=== PATIENT | male | born 1945 | race Caucasian/White ===

== ENCOUNTER 2019-01-26 18:26 | Emergency (ER) | payer MEDICARE ==
--- OUTSIDE RECORDS SUMMARY | 2019-01-26 18:33 | XMS REPORT | Continuity of Care Document ---
:1945 External Reference #:[id number] Author Name Evie Watts M.D., R.D. Address [address] [place] [id number] Care Team Providers Name Role Phone Evie Watts M.D., RTorsten Care Team Information Lan/Wan Engineer Unavailable Payers Date Identification Numbers Payment Provider Subscriber Effective: 2012 Policy Number: [id number] Medicare - Bswflo Armstrong Sammy Member Expires: 2016 PayID: [id number] [address] [place] [address] Effective: 2013 Policy Number: [id number] [employer](Open Choice) Denise Member Expires: 2014 PayID: [id number] [address] [place] [address] Effective: 2010 Policy Number: [id number] [facility] Denise Member Expires: 2011 Group Name: [facility] [address] [address] PayID: [id number] SHARON Chacko [id number] Effective: 2013 Policy Number: [id number] [facility] Denise Member Expires: 2013 Group Number: [id number] [address] [address] Group Name: BC/BS SHARON Lozano [address] PayID: [id number] Effective: 2014 Policy Number: [id number] [employer](Open Choice) Denise Member Expires: 2016 PayID: [id number] [address] [place] [address] Expires: 2017 Policy Number: [id number] [facility] Medicare Solutions Sammy Member Group Number: [id number] [address] [address] PayID: [id number] [place] [address] Effective: 2017 Policy Number: [employer] Bernard Member [id number] Rhonda PayID: [id number] 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., RTorsten Active crisis Onset: 06/15/2013 Benign essential hypertension Evie Watts M.D., RTorsten Active Onset: 06/15/2013 Mixed hyperlipidemia Evie Watts M.D., Michelle Active Onset: 06/15/2013 Depressive disorder Evie Watts M.D., RTorsten Active Onset: 06/15/2013 Generalized anxiety disorder Evie Watts M.D., RTorsten Active Onset: 06/15/2013 Impaired fasting glycaemia Evie Watts M.D., RTorsten Active Onset: 06/15/2013 Benign localized hyperplasia of Evie Watts M.D., RTorsten Active prostate Onset: 09/26/2015 Essential hypertension Evie Watts M.D., R.DJaren Active Family History Date Family Member(s) Observation Comments General No polyps or colon cancer fam hx General Anxiety General Hypertension General Depression Social History Type Date Description Comments Sex Unknown Education Highest level MD. He is a completed, Doctorate Psychiatrist in private practice. Marital Status Diet Healthy, Well Balanced Eats many [employer] prepared foods. Tries to avoid fast foods. Tobacco Use Start: Unknown Current Cigarette Has tried to quit. Smoker 1 Pack Daily ETOH Use Denies alcohol use Tobacco Use Start: Unknown Patient is a current As of 2012, down to 2 smoker, smokes every cigarettes a day. day 08/2014, still smokes only 2 cigarettes daily. Not interested in quitting completely. As of 11/2017, smoking a couple of cigarettes daily. Would like to quit but feeling his life is too stressful now to be able to stop now. Smoking Status Reviewed: 12/10/18 Patient is a current As of 2012, down to 2 smoker, smokes every cigarettes a day. day 08/2014, still smokes only 2 cigarettes daily. Not interested in quitting completely. As of 11/2017, smoking a couple of cigarettes daily. Would like to quit but feeling his life is too stressful now to be able to stop now. Exercise Exercises sporadically Used to run, do Type/Frequency Ju-Jitsu until hurt knee last yr. Now less exercise. As of 2011 he cannot do exercise due to back issues. Not exercising as of 08/2014. Not able to exercise due to pain in his back. 11/2018 also has VANEGAS which limits his exercise capacity. Allergies, Adverse Reactions, Alerts Description No Known Drug Allergies Medications Medication Date Status Form Strength Qnty SIG Indications Ordering Provider Ciprodex 01/13 Active Suspension 0.3-0.1% QS 2 drops in each eye qid Mac for 5 days M.D., R.D. Dulera 07/30 Active Aerosol 200-5mcg/ 13uni inhale 1 J44.9 Act ts puff by Mac, mouth two M.D., times a day R.D. Atenolol 10/01 Active Tablets 100mg 90tab 1 by mouth I10 Evie s every day Rodney Watts, R.D. Levothyroxine 11/28 Active Tablets 75mcg 90tab Take 1 Evie Sodium s Tablet By Mac, Mouth Every M.D., Day R.D. Lumigan 11/21 Active Solution 0.01% per Dr. Case /2016 El Watts M.D., R.D. Trazodone HCL 09/03 Active Tablets 100mg 90tab 1 tablet by Evie s mouth before Mac, bed as M.D., needed for R.D. sleep. Amlodipine 09/06 Active Tablets 5mg 90tab Take 1 I10 Evie Besylate s Tablet By Mac, Mouth Every M.D., Day R.D. Atorvastatin 05/08 Active Tablets 20mg 90tab Take 1 Evie Calcium s Tablet By Mac, Mouth AT M.D., Bedtime R.D. Meloxicam 01/05 Active Tablets 7.5mg 180ta 1 by mouth Evie bs every day to Mac, twice a day M.D., as needed R.D. Tamsulosin HCL 12/11 Active Capsules 0.4mg 90cap Take 1 s Capsule By Mac, Mouth Every M.D., Day R.D. Finasteride 12/11 Active Tablets 5mg 90tab Take 1 s Tablet By Mac, Mouth Every M.D., Day R.D. Cymbalta Active Caps DR 60mg 90cap 1 by mouth Isha Part s every day as P. directed Rodney Ackerman Ativan Active Tablets 1mg 1 by mouth Unknown four times a day Ritalin Active Tablets 20mg 1 by mouth Unknown three times a day Spiriva 07/30 Hx Aerosol 2.5mcg/Ac 4gm 1 inhalation J44.9 Respimat t once daily Ti Watts M.D., 01/12 R.D. /2018 Abilify 04/16 Hx Tablets 2mg 90tab 1 po qd s Ti Watts M.D., 07/30 R.D. Advair HFA 04/02 Hx Aerosol 115-21mcg 12uni inhale 2 /Act ts puffs by Ti Watts mouth twice M.D., 01/12 a day then R.D. /2018 rinse your mouth Bactrim DS 04/02 Hx Tablets 800-160mg 14tab 1 by mouth L02.212 s twice a day Ti Watts M.D., 07/29 R.D. Vitamin D-3 12/04 Hx Capsules 2000Unit 1 by mouth every day Ti Watts M.D., 07/30 R.D. Atenolol 10/01 Hx Tablets 100mg 90tab 1 by mouth I10 s every day Ti Watts M.D., 10/01 R.D. Ventolin HFA 09/04 Hx Aerosol 108(90Bas 1unit inhale two e) s puffs by Ti Watts mcg/Act mouth every M.D., 01/12 4 hours as R.D. needed Cephalexin 08/28 Hx Capsules 500mg 21cap 1 by mouth L03.039 s three times Mac - a day M.D., 12/04 R.D. /2017 Cialis 07/01 Hx Tablets 20mg 5tabs take 1 pill qd prn Ti Watts M.D., 07/30 R.D. Atenolol 06/29 Hx Tablets 50mg 2 by mouth I10 every day Ti Watts M.D., 10/01 R.D. Ritalin 12/24 Hx Tablets 20mg 30tab 1 by mouth s every day Ti Watts M.D., 01/23 R.D. Accu-Chek 11/24 Hx Kit 1unit Use as Evie Compact s directed Manuel Watts - M.DJaren, 07/30 R.D. Accu-Chek 11/24 Hx Strips 102un or Evie Compact its appropriate Ti Watts strips for M.D., 07/30 this R.D. /2017 patient's accu-check glucometer Lancets Thin 11/24 Hx Misc 100un use as its directed to Ti Watts check bgs M.DJaren, 07/30 R.D. Ativan 09/26 Hx Tablets 1mg 90tab 1 by mouth s three times Mac - a day M.D., 01/12 R.D. Ritalin 08/27 Hx Tablets 20mg 120ta 1 by mouth 4 bs times a day Mac, - - more only M.D., 01/12 R.D. Abilify 03/27 Hx Tablets 5mg 90tab 1 by mouth s every day Ti Watts M.D., 04/16 R.D. Cialis 02/17 Hx Tablets 10mg 10tab 1 by mouth s every [address] M.Nelly, 07/01 disregard rx R.D. /2016 just sent with qty of 6 and fill with qty of 10 Ativan 01/09 Hx Tablets 1mg 270ta 1 po tid bs code Ti Fernández M.D., 01/09 R.D. Vitamin D3 09/30 Hx Capsules [id number] 8caps 1 by mouth every week Ti Watts M.D., 12/04 R.D. /2017 Lansoprost Eye 09/26 Hx Evie Drops Ti Watts M.D., 11/21 R.D. Klonopin 09/26 Hx Tablets 1mg 270ta 1 by mouth bs three times Mac, - a day as Rodney, 09/26 needed code: R.D. a Acetaminophen-C 09/26 Hx Tablets 300-30mg 90tab 1 by mouth M54.5 Evie odeine #3 s every day as Mac - needed h/a Rodney, 04/02 R.D. /2017 Clobetasol 07/26 Hx Cream 0.05% 60gm Apply to Evie affected Ti Watts area on leg M.D., 07/30 bid R.D. /2017 Valtrex 07/12 Hx Tablets 1gm 21tab 1 by mouth Shawnti s three times Tiffany May, - a day for 7 SMALL ENGINE MECHANIC-C Viibryd 06/28 Hx Tablets 40mg 90tab take one tab s by mouth Mac - daily M.DJaren, 12/04 R.D. /2017 Concerta 03/28 Hx Tablets ER 36mg 180ta 2 by mouth bs every day Ti Watts b Rodney, 08/27 R.D. Levothyroxine 09/08 Hx Tablets 88mcg 90tab take 1 Ji Sodium s tablet daily Summer Luke MD 11/28 Amlodipine 09/06 Hx Tablets 5mg 30tab 1 by mouth 401.1 Evie Besylate s every day Ti Watts M.D., 09/08 R.D. Levothyroxine 09/12 Hx Tablets 75mcg 90tab 1 po qd Ti Addison M.D., 09/08 R.D. Viibryd 07/06 Hx Tablets 90tab 40 mg 1 by s mouth every Mac, - day M.Nelly, 06/28 R.D. /2014 Ativan 07/06 Hx Tablets 270ta 1 mg three bs times a day Mac, - code a Rodney, 07/14 R.D. /2015 Levothroid 05/11 Hx Tablets 50mcg 30tab 1 po qd marvin Delvalle, - SMALL ENGINE MECHANIC-C 09/06 Levothyroxine 05/11 Hx Tablets 50mcg 90tab 1 po qod marvin Watts, - with 75 haim MTorsten, 11/14 qod R.D. /2012 Trazadone 03/30 Hx 100mg 30uni 1 by mouth ts at at [place], - bedtime SMALL ENGINE MECHANIC-C 09/03 Levothyroxine 02/19 Hx Tablets 75mcg 90tab 1 po qd Ti Addison M.D., 05/11 R.D. /2012 Pristiq 01/09 Hx Tablets ER 100mg 1 po qd 24HR Ti Watts M.D., 03/30 R.D. Amlodipine 05/08 Hx Tablets 5mg 90tab 1 po qd Ti Addison M.D., 07/06 R.D. /2012 Abilify 12/28 Hx Tablets 5mg 1 po qd Ti Watts M.D., 09/26 R.D. /2014 Caduet 09/28 Hx Tablets 5-20mg 14tab 1 po qd Ti Addison M.D., 05/08 R.D. /2009 Levoxyl 12/14 Hx Tablets 88mcg 90tab 1 po qd as Ti Rudolph M.D., 02/19 R.D. /2011 Norvasc 12/11 Hx Tablets 5mg 90tab 1 po qd 401.1 s Ti Watts M.D., 09/28 R.D. /2008 Effexor XR 12/11 Hx Caps ER 300mg 150 mg 2 po 24HR qd Ti Watts M.D., 01/09 R.D. /2010 Concerta 12/11 Hx Tablets ER 180ta 72 mg every F32.9 bs in the Mac, - morning (2 M.D., 09/26 36 mg pills) R.D. /2014 code b Klonopin 12/11 Hx Tablets 0.5mg 1 po tid prn Ti Watts M.D., 07/06 R.D. /2012 Lipitor 12/11 Hx Tablets 90tab 20 mg 1 po s qhs Ti Watts M.D., 05/08 R.D. /2009 Atenolol 12/11 Hx Tablets 100mg 90tab Take 1 I10 s Tablet By Mac - Mouth Every M.D., 06/29 Day R.D. /2016 Medications Administered in Office Medication Date Status Form Strength Qnty SIG Indications Ordering Provider TB,Intradermal Administered Injection Lab and (PPD, Mantoux) 010 Office Services Immunizations CPT Code Status Date Vaccine Lot # [id number] Given 07/30/2018 Influenza Vaccine High Dose PF [id number] 48783 Given 08/28/2017 Influenza Vaccine High Dose PF [id number] 20013 Given 11/21/2016 Influenza Vaccine High Dose PF [id number] 44036 Given 09/26/2015 Zoster Vaccine [id number] 44901 Given 09/26/2015 Influenza Vaccine High Dose PF [id number] 94579 Given 12/01/2014 Prevnar-13 Pneumococcal Conjugate Vaccine [id number] 09652 Given 09/06/2014 Influenza Virus Vaccine, Quadrivalent, 3 Yr > [id number] Quad, Preserv Free 48687 Given 03/30/2013 Pneumovax 23 (PPSV23) 65+ years or high risk 2 to [id number] 66 year old 12491 Given 06/28/2009 Tdap (Adacel) [id number] Vital Signs Date Vital Result Comment 01/12/2019 3:05pm Weight 161.00 lb Weight 73.030 kg BP Systolic 132 mmHg BP Diastolic 82 mmHg Heart Rate 78 /min Body Temperature 97.0 F Respiratory Rate 18 /min O2 % BldC Oximetry 97 % 12/10/2018 2:03pm Weight 162.00 lb Weight 73.483 kg BP Systolic 140 mmHg BP Diastolic 90 mmHg Heart Rate 76 /min Body Temperature 97.9 F Height 65 inches 5'5" BMI (Body Mass Index) 27.0 kg/m2 O2 % BldC Oximetry 97 % 07/30/2018 10:45am Weight 162.00 lb Weight 73.483 kg BP Systolic 138 mmHg BP Diastolic 82 mmHg Heart Rate 72 /min Body Temperature 98.7 F Respiratory Rate 12 /min 04/02/2018 1:13pm Weight 165.00 lb Weight 74.844 kg BP Systolic 124 mmHg BP Diastolic 83 mmHg Heart Rate 80 /min Body Temperature 99.3 F O2 % BldC Oximetry 97 % 12/04/2017 12:12pm Weight 170.00 lb Weight 77.112 kg BP Systolic 110 mmHg BP Diastolic 62 mmHg Heart Rate 72 /min Body Temperature 97.1 F Respiratory Rate 16 /min O2 % BldC Oximetry 97 % 08/28/2017 11:23am Weight 170.00 lb Weight 77.112 kg BP Systolic 110 mmHg BP Diastolic 60 mmHg Heart Rate 72 /min Body Temperature 96.8 F 05/22/2017 11:14am Weight 166.00 lb Weight 75.298 kg BP Systolic 112 mmHg BP Diastolic 72 mmHg Heart Rate 76 /min Body Temperature 97.9 F Respiratory Rate 16 /min O2 % BldC Oximetry 98 % 11/21/2016 9:36am Weight 163.00 lb Weight 73.937 kg BP Systolic 139 mmHg BP Diastolic 85 mmHg Heart Rate 72 /min Height 66 inches 5'6" BMI (Body Mass Index) 26.3 kg/m2 09/26/2015 9:27am Weight 157.00 lb Weight 71.215 kg BP Systolic 120 mmHg BP Diastolic 80 mmHg Heart Rate 62 /min Height 65.5 inches 5'5.50" BMI (Body Mass Index) 25.7 kg/m2 05/21/2015 3:27pm Weight 164.00 lb Weight 74.390 kg BP Systolic 120 mmHg BP Diastolic 70 mmHg Heart Rate 62 /min 09/22/2014 1:04pm BP Systolic 110 mmHg BP Diastolic 72 mmHg 09/06/2014 2:20pm Weight 167.00 lb Weight 75.751 kg BP Systolic 150 mmHg BP Diastolic 100 mmHg Heart Rate 62 /min Height 65.5 inches 5'5.50" BMI (Body Mass Index) 27.4 kg/m2 02/03/2014 12:00pm BP Systolic 122 mmHg BP Diastolic 80 mmHg 11/11/2013 2:55pm Weight 153.00 lb Weight 69.401 kg BP Systolic 124 mmHg BP Diastolic 80 mmHg 09/09/2013 3:07pm Weight 153.00 lb Weight 69.401 kg BP Systolic 128 mmHg BP Diastolic 82 mmHg Heart Rate 68 /min 07/06/2013 10:44am Weight 147.00 lb Weight 66.679 kg BP Systolic 132 mmHg BP Diastolic 84 mmHg Heart Rate 96 /min 04/29/2013 11:30am BP Systolic 110 mmHg BP Diastolic 74 mmHg 03/30/2013 11:02am Weight 159.00 lb Weight 72.122 kg BP Systolic 96 mmHg BP Diastolic 64 mmHg Heart Rate 100 /min Height 65.5 inches 5'5.50" BMI (Body Mass Index) 26.1 kg/m2 05/20/2012 2:49pm BP Systolic 110 mmHg BP Diastolic 74 mmHg 04/27/2012 11:57am BP Systolic 142 mmHg BP Diastolic 92 mmHg 03/26/2012 11:50am BP Systolic 120 mmHg BP Diastolic 82 mmHg 02/18/2012 10:42am Weight 155.00 lb Weight 70.308 kg BP Systolic 120 mmHg BP Diastolic 70 mmHg Heart Rate 108 /min Height 65.75 inches 5'5.75" BMI (Body Mass Index) 25.2 kg/m2 01/09/2011 1:34pm Weight 160.00 lb Weight 72.576 kg BP Systolic 140 mmHg BP Diastolic 80 mmHg Heart Rate 92 /min Height 65.75 inches 5'5.75" BMI (Body Mass Index) 26.0 kg/m2 12/28/2009 12:20pm Weight 163.00 lb Weight 73.937 kg BP Systolic 115 mmHg BP Diastolic 83 mmHg Heart Rate 92 /min Body Temperature 97.7 F 08/17/2009 11:32am Weight 155.00 lb Weight 70.308 kg BP Systolic 120 mmHg BP Diastolic 70 mmHg Heart Rate 72 /min 07/20/2009 3:09pm Weight 155.00 lb Weight 70.308 kg BP Systolic 120 mmHg BP Diastolic 72 mmHg Heart Rate 64 /min 01/05/2009 1:01pm Weight 152.00 lb Weight 68.947 kg BP Systolic 110 mmHg BP Diastolic 60 mmHg Heart Rate 64 /min Height 65.5 inches 5'5.50" BMI (Body Mass Index) 24.9 kg/m2 12/11/2008 4:07pm Weight 153.00 lb Weight 69.401 kg BP Systolic 110 mmHg BP Diastolic 78 mmHg Heart Rate 66 /min Height 65.5 inches 5'5.50" BMI (Body Mass Index) 25.1 kg/m2 O2 % BldC Oximetry 97 % Results Test Date Facility Test Result H/L Range Note Laboratory test 01/12/2019 In House Lab Strep PCR NEG finding (997)- - Eye Culture/Sensi 01/12/2019 [facility] Eye Culture SEE RESULT 5 [phone] Gram Stain BELOW Comp Metabolic 12/10/2018 [facility] Sodium 138 mmol/ L N 135-145 Panel [phone] Potassium 4.2 mmol/L N 3.5-5.0 Chloride 103 mmol/L N 101-111 Co2 Carbon Dioxide 29 mmol/L N 22-32 Anion Gap 6 mmol/L N 2-11 Glucose 105 mg/dL High 70-100 Blood Urea Nitrogen 24 mg/dL N 6-24 Creatinine 0.90 mg/dL N 0.67-1.17 BUN/Creatinine Ratio 26.7 High 8-20 Calcium 9.8 mg/dL N 8.6-10.3 Total Protein 7.5 g/dL N 6.4-8.9 Albumin 4.2 g/dL N 3.2-5.2 Globulin 3.3 g/dL N 2-4 Albumin/Globulin Ratio 1.3 N 1-3 Total Bilirubin 0.40 mg/dL N 0.2-1.0 Alkaline Phosphatase 67 U/L N 34-104 Alt 19 U/L N 7-52 Ast 16 U/L N 13-39 Egfr Non- 83.4 >60 Egfr 100.9 >60 2 Laboratory test 12/10/2018 [facility] Hemoglobin A1c 5.9 % High 4.0-5.6 3 finding [phone] (Glyco HGB) Lipid Profile 12/10/2018 [facility] Triglycerides 67 4 (Trig/Chol/HDL) [phone] mg/dL Cholesterol 159 mg/dL 5 HDL Cholesterol 47.2 mg/dL 6 LDL Cholesterol 98 mg/dL 7 Laboratory test 12/10/2018 [facility] TSH (Thyroid 2.01 mcIU/mL N 0.34-5.60 8 finding [phone] Stim Horm) PSA Screening 2.104 ng/mL N 0-4.000 9 Laboratory test 05/21/2018 [facility] Surgical SEE RESULT 10 finding [phone] Interface Order BELOW Comp Metabolic 04/06/2018 [facility] Sodium 136 mmol/ L Low 139-1 Panel [phone] Potassium 4.2 mmol/L N 3.5-5.0 Chloride 102 mmol/L N 101-111 Co2 Carbon Dioxide 26 mmol/L N 22-32 Anion Gap 8 mmol/L N 2-11 Glucose 99 mg/dL N 70-100 Blood Urea Nitrogen 20 mg/dL N 6-24 Creatinine 1.08 mg/dL N 0.67-1.17 BUN/Creatinine Ratio 18.5 N 8-20 Calcium 9.6 mg/dL N 8.6-10.3 Total Protein 7.6 g/dL N 6.4-8.9 Albumin 4.5 g/dL N 3.2-5.2 Globulin 3.1 g/dL N 2-4 Albumin/Globulin Ratio 1.5 N 1-3 Total Bilirubin 0.50 mg/dL N 0.2-1.0 Alkaline Phosphatase 58 U/L N 34-104 Alt 17 U/L N 7-52 Ast 18 U/L N 13-39 Egfr Non- 67.6 >60 Egfr 86.9 >60 11 Laboratory test 04/06/2018 [facility] Hemoglobin A1c 5.5 % N 4.0-5.6 12 finding [phone] Wound 04/02/2018 [facility] Wound/Misc SEE RESULT 13 Culture/Sensi [phone] Culture-Gram BELOW Stain Lipid Profile 12/04/2017 [facility] Triglycerides 114 mg/dL 14 (Trig/Chol/HDL) [phone] Cholesterol 161 mg/dL 15 HDL Cholesterol 42.6 mg/dL 16 LDL Cholesterol 96 mg/dL 17 Laboratory test 12/04/2017 [facility] TSH (Thyroid 1.17 mcIU/mL N 0.34-5.60 18 finding [phone] Stim Horm) T3 Total 1.10 ng/mL N 0.87-1.78 19 Free T4 (Free Thyroxine) 1.02 ng/dL N 0.61-1.12 20 PSA Screening 0.625 ng/mL N 0-4.000 21 Comp Metabolic Panel 12/04/2017 [facility] Sodium 136 mmol/L N 133-145 [phone] Potassium 4.1 mmol/L N 3.5-5.0 Chloride 103 mmol/L N 101-111 Co2 Carbon Dioxide 29 mmol/L N 22-32 Anion Gap 4 mmol/L N 2-11 Glucose 108 mg/dL High 70-100 Blood Urea Nitrogen 22 mg/dL N 6-24 Creatinine 0.87 mg/dL N 0.67-1.17 BUN/Creatinine Ratio 25.3 High 8-20 Calcium 9.9 mg/dL N 8.6-10.3 Total Protein 7.5 g/dL N 6.4-8.9 Albumin 4.3 g/dL N 3.2-5.2 Globulin 3.2 g/dL N 2-4 Albumin/Globulin Ratio 1.3 N 1-3 Total Bilirubin 0.60 mg/dL N 0.2-1.0 Alkaline Phosphatase 56 U/L N 34-104 Alt 14 U/L N 7-52 Ast 14 U/L N 13-39 Egfr Non- 87.0 >60 Egfr 111.9 >60 22 Laboratory test 12/04/2017 [facility] Vitamin B12 209 pg/mL N 180-914 23 finding [phone] CBC Auto Diff 12/04/2017 [facility] White Blood 6.8 10^3/uL N 3.5-10.8 [phone] Count Red Blood Count 4.71 10^6/uL N 4.0-5.4 Hemoglobin 14.3 g/dL N 14.0-18.0 Hematocrit 42 % N 42-52 Mean Corpuscular Volume 89 fL N 80-94 Mean Corpuscular Hemoglobin 30 pg N 27-31 Mean Corpuscular HGB Conc 34 g/dL N 31-36 Red Cell Distribution Width 13 % N 10.5-15 Platelet Count 237 10^3/uL N 150-450 Mean Platelet Volume 8 um3 N 7.4-10.4 Abs Neutrophils 4.4 10^3/uL N 1.5-7.7 Abs Lymphocytes 1.9 10^3/uL N 1.0-4.8 Abs Monocytes 0.4 10^3/uL N 0-0.8 Abs Eosinophils 0.1 10^3/uL N 0-0.6 Abs Basophils 0 10^3/uL N 0-0.2 Abs Nucleated RBC 0 10^3/uL Granulocyte % 64.4 % N 38-83 Lymphocyte % 27.3 % N 25-47 Monocyte % 6.1 % N 1-9 Eosinophil % 1.6 % N 0-6 Basophil % 0.6 % N 0-2 Nucleated Red Blood Cells % 0 Laboratory test 05/22/2017 [facility] TSH (Thyroid 3.72 mcIU/mL N 0.34-5.60 24 finding [phone] Stim Horm) T3 Total 0.89 ng/mL N 0.87-1.78 25 Free T4 (Free Thyroxine) 0.76 ng/dL N 0.61-1.12 26 Vitamin D Total 25(Oh) 29.0 ng/mL Low 30-50 27 CBC Auto Diff 05/22/2017 [facility] White Blood 8.8 10^3/uL N 3.5-10.8 [phone] Count Red Blood Count 4.85 10^6/uL N 4.0-5.4 Hemoglobin 14.5 g/dL N 14.0-18.0 Hematocrit 44 % N 42-52 Mean Corpuscular Volume 91 fL N 80-94 Mean Corpuscular Hemoglobin 30 pg N 27-31 Mean Corpuscular HGB Conc 33 g/dL N 31-36 Red Cell Distribution Width 14 % N 10.5-15 Platelet Count 231 10^3/uL N 150-450 Mean Platelet Volume 8 um3 N 7.4-10.4 Abs Neutrophils 6.1 10^3/uL N 1.5-7.7 Abs Lymphocytes 2.0 10^3/uL N 1.0-4.8 Abs Monocytes 0.5 10^3/uL N 0-0.8 Abs Eosinophils 0.1 10^3/uL N 0-0.6 Abs Basophils 0 10^3/uL N 0-0.2 Abs Nucleated RBC 0.01 10^3/uL N Granulocyte % 69.8 % N 38-83 Lymphocyte % 22.8 % Low 25-47 Monocyte % 5.6 % N 1-9 Eosinophil % 1.4 % N 0-6 Basophil % 0.4 % N 0-2 Nucleated Red Blood Cells % 0.1 N Laboratory test 05/22/2017 [facility] Ferritin 89.5 ng/mL N 24-336 28 finding [phone] Vitamin B12 304 pg/mL N 180-914 29 Comp Metabolic Panel 11/21/2016 [facility] Sodium 135 mmol/L N 133-145 [phone] Potassium 4.3 mmol/L N 3.5-5.0 Chloride 105 mmol/L N 101-111 Co2 Carbon Dioxide 28 mmol/L N 22-32 Anion Gap 2 mmol/L N 2-11 Glucose 109 mg/dL High 70-100 Blood Urea Nitrogen 24 mg/dL N 6-24 Creatinine 1.05 mg/dL N 0.67-1.17 BUN/Creatinine Ratio 22.9 High 8-20 Calcium 9.7 mg/dL N 8.6-10.3 Total Protein 7.5 g/dL N 6.4-8.9 Albumin 4.3 g/dL N 3.2-5.2 Globulin 3.2 g/dL N 2-4 Albumin/Globulin Ratio 1.3 N 1-3 Total Bilirubin 0.40 mg/dL N 0.2-1.0 Alkaline Phosphatase 76 U/L N 34-104 Alt 17 U/L N 7-52 Ast 18 U/L N 13-39 Egfr Non- 70.2 N >60 Egfr 90.3 N >60 30 Laboratory test 11/21/2016 [facility] Hemoglobin A1c 5.7 % N Less than 31 finding [phone] (Glyco HGB) 6.0 TSH (Thyroid Stim Horm) 0.23 mcIU/mL Low 0.34-5.60 32 Vitamin D Total 25(Oh) 14.9 ng/mL Low 30-50 33 Vitamin B12 158 pg/mL Low 180-914 34 Hepatitis C Antibody Nonreactive N Nonreactive 35 PSA Screening 0.531 ng/mL N 0-4.000 36 Laboratory test 09/26/2015 [facility] PSA Screening 0.597 ng/mL N 0-4.000 37 finding [phone] TSH (Thyroid Stim Horm) 0.79 ?IU/mL N 0.34-5.60 Hemoglobin A1c (Glyco HGB) 5.9 % N Less than 6.0 38 Comp Metabolic Panel 09/26/2015 [facility] Sodium 138 mmol/L N 133-145 [phone] Potassium 4.2 mmol/L N 3.5-5.0 Chloride 104 mmol/L N 101-111 Co2 Carbon Dioxide 28 mmol/L N 22-32 Anion Gap 6 mmol/L N 2-11 Glucose 106 mg/dL High 70-100 Blood Urea Nitrogen 17 mg/dL N 6-24 Creatinine 0.96 mg/dL N 0.67-1.17 BUN/Creatinine Ratio 17.7 N 8-20 Calcium 9.6 mg/dL N 8.6-10.3 Total Protein 7.1 g/dL N 6.4-8.9 Albumin 4.3 g/dL N 3.2-5.2 Globulin 2.8 g/dL N 2-4 Albumin/Globulin Ratio 1.5 N 1-3 Total Bilirubin 0.50 mg/dL N 0.2-1.0 Alkaline Phosphatase 66 U/L N 34-104 Alt 16 U/L N 7-52 Ast 18 U/L N 13-39 Egfr Non- 78.1 N >60 Egfr 100.5 N >60 39 CBC Auto Diff 09/26/2015 [facility] White Blood 7.2 10^3/uL N 4.8-10.8 [phone] Count Red Blood Count 4.59 10^6/uL N 4.0-5.4 Hemoglobin 13.5 g/dL Low 14.0-18.0 Hematocrit 42 % N 42-52 Mean Corpuscular Volume 91 fL N 80-94 Mean Corpuscular Hemoglobin 29 pg N 27-31 Mean Corpuscular HGB Conc 32 g/dL N 31-36 Red Cell Distribution Width 14 % N 10.5-15 Platelet Count 259 10^3/uL N 150-450 Mean Platelet Volume 8 um3 N 7.4-10.4 Abs Neutrophils 4.7 10^3/uL N 1.5-7.7 Abs Lymphocytes 1.8 10^3/uL N 1.0-4.8 Abs Monocytes 0.5 10^3/uL N 0-0.8 Abs Eosinophils 0.2 10^3/uL N 0-0.6 Abs Basophils 0.1 10^3/uL N 0-0.2 Abs Nucleated RBC 0 10^3/uL N Granulocyte % 65.3 % N 38-83 Lymphocyte % 24.6 % Low 25-47 Monocyte % 7.0 % N 1-9 Eosinophil % 2.4 % N 0-6 Basophil % 0.7 % N 0-2 Nucleated Red Blood Cells % 0 N Lipid Profile 09/26/2015 [facility] Triglycerides 99 mg/dL N 40 (Trig/Chol/HDL) [phone] Cholesterol 144 mg/dL N 41 HDL Cholesterol 35.6 mg/dL N 42 LDL Cholesterol 89 mg/dL N 43 Laboratory test 09/26/2015 [facility] Vitamin D 11.1 ng/mL Low 30-50 finding [phone] Total 25(Oh) Urine DIP 09/26/2015 In House Lab Specific 1.015 1.01-1.02 (607)- - [place] Urine pH 5 5-6 Leukocytes NEG Neg Urine Nitrites NEG Neg Total Protein, Urine NEG Neg Urine Glucose NORM Norm Urine Ketones NEG Neg Urobilinogen NORM Norm Urine Bilirubin NEG Neg Urine Blood NEG Neg Laboratory test 12/01/2014 [facility] TSH (Thyroid 1.67 IU/mL N 0.34-5.60 finding [phone] Stimulating Horm) Free T3 2.80 pg/mL N 2.5-3.9 Free T4 0.85 ng/mL N 0.61-1.12 Comp Metabolic Panel 09/06/2014 [facility] Sodium 136 mmol/L N 133-145 [phone] Potassium 4.3 mmol/L N 3.7-5.6 Chloride 103 mmol/L N 101-111 Co2 Carbon Dioxide 32 mmol/L N 22-32 Anion Gap 1 mmol/L Low 2-11 Glucose 90 mg/dL N 70-100 Blood Urea Nitrogen 22 mg/dL N 6-24 Creatinine 1.06 mg/dL N 0.67-1.17 BUN/Creatinine Ratio 20.8 High 8-20 Calcium 9.6 mg/dL N 8.6-10.3 Total Protein 7.3 g/dL N 6.4-8.9 Albumin 4.4 g/dL N 3.2-5.2 Globulin 2.9 g/dL N 2-4 Albumin/Globulin Ratio 1.5 N 1-3 Total Bilirubin 0.50 mg/dL N 0.2-1.0 Alkaline Phosphatase 48 U/L N 34-104 Alt 19 U/L N 7-52 Ast 17 U/L N 13-39 Egfr Non- 69.9 N >60 Egfr 89.9 N >60 44 CBC Auto Diff 09/06/2014 [facility] White Blood 6.8 10^3/uL N 4.8-10.8 [phone] Count Red Blood Count 4.69 10^6/uL N 4.0-5.4 Hemoglobin 14.2 g/dL N 14.0-18.0 Hematocrit 42 % N 42-52 Mean Corpuscular Volume 90 fL N 80-94 Mean Corpuscular Hemoglobin 30 pg N 27-31 Mean Corpuscular HGB Conc 34 g/dL N 31-36 Red Cell Distribution Width 13 % N 10.5-15 Platelet Count 215 10^3/uL N 150-450 Mean Platelet Volume 7 um3 Low 7.4-10.4 Abs Neutrophils 4.3 10^3/uL N 1.5-7.7 Abs Lymphocytes 2.0 10^3/uL N 1.0-4.8 Abs Monocytes 0.4 10^3/uL N 0-0.8 Abs Eosinophils 0.1 10^3/uL N 0-0.6 Abs Basophils 0 10^3/uL N 0-0.2 Abs Nucleated RBC 0.01 10^3/uL N Granulocyte % 62.8 % N 38-83 Lymphocyte % 29.1 % N 25-47 Monocyte % 6.4 % N 1-9 Eosinophil % 1.2 % N 0-6 Basophil % 0.5 % N 0-2 Nucleated Red Blood Cells % 0.1 N Laboratory test 09/06/2014 [facility] TSH (Thyroid 5.07 IU/mL N 0.34-5.60 finding [phone] Stimulating Horm) Free T4 0.69 ng/mL N 0.61-1.12 Total T3 0.92 ng/mL N 0.87-1.78 Hemoglobin A1c 6.0 % N Less than 6.0 45 Urine DIP 09/06/2014 In House Lab Specific [place] 1.005 Low 1.01-1.02 (607)- - Urine pH 8 High 5-6 Leukocytes TRACE Neg Urine Nitrites NEG Neg Total Protein, Urine TRACE Neg Urine Glucose NORM Norm Urine Ketones NEG Neg Urobilinogen NORM Norm Urine Bilirubin NEG Neg Urine Blood TRACE Neg Laboratory test 02/03/2014 [facility] TSH (Thyroid 4.54 IU/mL 0.34-5.60 finding [phone] Stimulating Horm) Total T3 0.89 ng/mL 0.87-1.78 Free T4 0.76 ng/mL 0.61-1.12 CBC With 02/03/2014 [facility] White Blood 6.2 10^3/ uL 4.8-10.8 Manual Diff [phone] Count Red Blood Count 4.68 10^6/uL 4.0-5.4 Hemoglobin 14.4 g/dL 14.0-18.0 Hematocrit 42 % 42-52 Mean Corpuscular Volume 90 fL 80-94 Mean Corpuscular Hemoglobin 31 pg 27-31 Mean Corpuscular HGB Conc 34 g/dL 31-36 Red Cell Distribution Width 14 % 10.5-15 Platelet Count 216 10^3/uL 150-450 Mean Platelet Volume 8 um3 7.4-10.4 Abs Neutrophils 3.7 10^3/uL 1.5-7.7 Abs Lymphocytes 2.0 10^3/uL 1.0-4.8 Abs Monocytes 0.4 10^3/uL 0-0.8 Abs Eosinophils 0.1 10^3/uL 0-0.6 Abs Basophils 0 10^3/uL 0-0.2 Abs Nucleated RBC 0.01 10^3/uL Neutrophil % 58 % 38-83 Lymphocytes % 33 % 25-47 Monocytes % 6 % 0-13 Eosinophils % 2 % 0-6 Reactive Lymph % 1 % 0-6 RBC Morphology Normal Normal Laboratory 02/03/2014 [facility] Vitamin B12 831 pg/ mL [phone] test finding [phone] Laboratory 11/11/2013 [facility] TSH (Thyroid 6.89 High 0.34-5.60 test finding [phone] Stimulating miu/mL Horm) CBC With 11/11/2013 [facility] White Blood 7.2 4.8 -10.8 Manual Diff [phone] Count 10^3/uL Red Blood Count 4.52 10^6/uL 4.0-5.4 Hemoglobin 14.0 g/dL 14.0-18.0 Hematocrit 40 % Low 42-52 Mean Corpuscular Volume 90 fL 80-94 Mean Corpuscular Hemoglobin 31 pg 27-31 Mean Corpuscular HGB Conc 35 g/dL 31-36 Red Cell Distribution Width 13 % 10.5-15 Platelet Count 259 10^3/uL 150-450 Mean Platelet Volume 8 um3 7.4-10.4 Abs Neutrophils 4.8 10^3/uL 1.5-7.7 Abs Lymphocytes 1.8 10^3/uL 1.0-4.8 Abs Monocytes 0.4 10^3/uL 0-0.8 Abs Eosinophils 0.1 10^3/uL 0-0.6 Abs Basophils 0 10^3/uL 0-0.2 Abs Nucleated RBC 0.01 10^3/uL Neutrophil % 63 % 38-83 Lymphocytes % 27 % 25-47 Monocytes % 7 % 0-13 Eosinophils % 2 % 0-6 Basophil % 1 % 0-2 RBC Morphology Normal Normal Iron & Iron Binding 11/11/2013 [facility] Iron 79 g /dL 45-182 Capacity [phone] Unsaturated Iron Binding 268 g/dL Total Iron Binding Capacity 347 g/dL 250-450 % Iron Saturation 23 % 15-55 Laboratory test 11/11/2013 [facility] Ferritin 104 ng /mL 24-336 finding [phone] Vitamin B12 184 pg/mL 180-914 Laboratory test 09/09/2013 [facility] Erythrocyte Sed 9 mm/Hr 0-40 finding [phone] Rate TSH (Thyroid Stimulating Horm) 6.82 miu/mL High 0.34-5.60 Total T3 1.10 ng/mL 0.5-1.7 Free T4 0.59 ng/mL Low 0.61-1.24 CBC Auto Diff 09/09/2013 [facility] White Blood 7.4 10^3/uL 4.8-10.8 [phone] Count Red Blood Count 4.42 10^6/uL 4.0-5.4 Hemoglobin 13.6 g/dL Low 14.0-18.0 Hematocrit 40 % Low 42-52 Mean Corpuscular Volume 91 fL 80-94 Mean Corpuscular Hemoglobin 31 pg 27-31 Mean Corpuscular HGB Conc 34 g/dL 31-36 Red Cell Distribution Width 13 % 10.5-15 Platelet Count 229 10^3/uL 150-450 Mean Platelet Volume 8 um3 7.4-10.4 Abs Neutrophils 4.5 10^3/uL 1.5-7.7 Abs Lymphocytes 2.2 10^3/uL 1.0-4.8 Abs Monocytes 0.5 10^3/uL 0-0.8 Abs Eosinophils 0.2 10^3/uL 0-0.6 Abs Basophils 0 10^3/uL 0-0.2 Abs Nucleated RBC 0 10^3/uL Granulocyte % 60.1 % 38-83 Lymphocyte % 29.7 % 25-47 Monocyte % 6.8 % 1-9 Eosinophil % 3.0 % 0-6 Basophil % 0.4 % 0-2 Nucleated Red Blood Cells % 0 Comp Metabolic Panel 09/09/2013 [facility] Sodium 139 mmol/L 133-145 [phone] Potassium 4.2 mmol/L 3.5-5.0 Chloride 103 mmol/L 101-111 Co2 Carbon Dioxide 31.0 mmol/L 22-32 Anion Gap 5.0 mmol/L 2-11 Glucose 98 mg/dL 70-100 Blood Urea Nitrogen 19 mg/dL 6-24 Creatinine 1.00 mg/dL 0.50-1.40 BUN/Creatinine Ratio 19.0 8-20 Calcium 9.3 mg/dL 8.1-9.9 Total Protein 6.7 g/dL 6.2-8.1 Albumin 4.1 g/dL 3.2-5.2 Globulin 2.6 g/dL 2-4 Albumin/Globulin Ratio 1.6 1-3 Total Bilirubin 0.6 mg/dL 0.4-1.5 Alkaline Phosphatase 55 U/L 30-110 Alt 17 U/L 14-54 Ast 18 U/L 12-42 Egfr Non- 75.0 >60 Egfr 96.4 >60 47 Laboratory test 05/06/2013 [facility] TSH (Thyroid 0.11 Low 0.34-5.60 finding [phone] Stimulating miu/mL Horm) Total T3 1.09 ng/mL 0.5-1.7 Free T4 1.13 ng/mL 0.61-1.24 Total Protein 24HR 04/01/2013 [facility] Urine Random 9 mg/dL Urine [phone] Total Protein Urine Total Protein/24HR 121 mg/24Hr 0-165 Urine Collection Time 24 Urine Total Volume 1350 mL Comp Metabolic Panel 03/30/2013 [facility] Sodium 138 mmol/L 133-145 [phone] Potassium 4.3 mmol/L 3.5-5.0 Chloride 103 mmol/L 101-111 Co2 Carbon Dioxide 28.0 mmol/L 22-32 Anion Gap 7.0 mmol/L 2-11 Glucose 102 mg/dL High 70-100 Blood Urea Nitrogen 22 mg/dL 6-24 Creatinine 1.10 mg/dL 0.50-1.40 BUN/Creatinine Ratio 20.0 8-20 Calcium 9.2 mg/dL 8.1-9.9 Total Protein 7.3 g/dL 6.2-8.1 Albumin 4.3 g/dL 3.2-5.2 Globulin 3.0 g/dL 2-4 Albumin/Globulin Ratio 1.4 1-3 Total Bilirubin 0.5 mg/dL 0.4-1.5 Alkaline Phosphatase 56 U/L 30-110 Alt 17 U/L 14-54 Ast 20 U/L 12-42 Egfr Non- 67.2 >60 Egfr 86.4 >60 48 Lipid Profile 03/30/2013 [facility] Triglycerides 43 mg/dL 40-200 (Trig/Chol/HDL) [phone] Cholesterol 124 mg/dL Less than 200 HDL Cholesterol 43 mg/dL 40-60 49 Cholesterol/HDL Ratio 2.9 Average 1-4.44 LDL Cholesterol 72.4 mg/dL Less Than 100 50 Laboratory test 03/30/2013 [facility] Creatine Kinase 95 U/L 0-200 51 finding [phone] Hemoglobin A1c 5.8 % Less than 6.0 52 PSA Screening 0.5 ng/mL 0-4.0 53 Urine DIP 03/30/2013 In House Lab Leukocytes neg Neg (607)- - Urine Nitrites neg Neg Urine pH 6 5-6 Total Protein, Urine 30+ High Neg Urine Glucose norm Norm Urine Ketones neg Neg Urobilinogen norm Norm Urine Bilirubin neg Neg Urine Blood neg Neg Specific [place] 1.025 High 1.01-1.02 Surgical Pathology 04/09/2012 [facility] Surgical --- 54 [phone] Pathology <SEE NOTE> Protein 04/01/2012 [facility] Urine (SEE NOTE) 55, Electrophoresis [phone] Pattern 56 24HR U Suggests: Total Protein Random Urine 12 mg/dL Urine Total Protein/24HR 159 MG/24HR High 50-100 Hours Of Collection 24 HR 24- Urine Volume Measurement 1325 ML Creatinine 24HR 04/01/2012 [facility] Creatinine Random 130.7 mg/dL Urine [phone] Urine Urine Creatinine/24HR 1731.7 MG/24HR 800-2000 Urine DIP 03/26/2012 In House Lab Leukocytes NEG Neg (607)- - Urine Nitrites NEG Neg Urine pH 5 5-6 Total Protein, Urine TRACE Neg Urine Glucose NORM Norm Urine Ketones NEG Neg Urobilinogen NORM Norm Urine Bilirubin NEG Neg Urine Blood NEG Neg Specific [place] N/A Low 1.01-1.02 Laboratory test 03/26/2012 [facility] Hemoglobin A1c 6.3 % High Less Than 57 finding [phone] 6.0 Urine DIP 03/12/2012 In House Lab Leukocytes neg Neg (607)- - Urine Nitrites neg Neg Urine pH 6-7 5-6 Total Protein, Urine neg Neg Urine Glucose norm Norm Urine Ketones neg Neg Urobilinogen norm Norm Urine Bilirubin neg Neg Urine Blood neg Neg Specific [place] na Low 1.01-1.02 Urine DIP 02/18/2012 In House Lab Leukocytes NEG Neg (607)- - Urine Nitrites NEG Neg Urine pH 5 5-6 Total Protein, Urine 1+ High Neg Urine Glucose norm Norm Urine Ketones neg Neg Urobilinogen norm Norm Urine Bilirubin neg Neg Urine Blood neg Neg Specific [place] na Low 1.01-1.02 Laboratory test 02/18/2012 [facility] PSA 0.57 NG/ML 0-4 58 finding [phone] Comp Metabolic Panel 02/18/2012 [facility] Sodium 137 mmol/L 135-145 [phone] Potassium 4.0 mmol/L 3.5-5.0 Chloride 102 mmol/L 101-111 Co2 (Carbon Dioxide) 30.0 mmol/L 22-32 Anion Gap 5.0 mmol/L 2-11 59 Glucose 102 mg/dL High 70-100 BUN 19 mg/dL 6-24 Creatinine 0.9 mg/dL 0.50-1.40 One Over Creatinine 1.11 BUN/Creatinine Ratio 21.1 High 8-20 Calcium 9.4 mg/dL 8.1-9.9 Total Protein 7.5 GM/DL 6.2-8.1 Albumin 4.2 GM/DL 3.2-5.2 Globulin 3.3 GM/DL 2-4 Albumin/Globulin Ratio 1.3 1-3 Bilirubin Total 0.6 mg/dL 0.4-1.5 60 Alkaline Phosphatase 74 U/L 39-117 Alt (SGPT) 22 U/L 17-63 Ast (Sgot) 20 U/L 12-42 eGFR Non- 85.0 > 60 eGFR 109.3 > 60 61 Lipid Profile 02/18/2012 [facility] Triglyceride 68 mg/dL 40-200 (Trig/Chol/HDL) [phone] Cholesterol 159 mg/dL Less Than 200 62 High Density Lipoprotein 47 mg/dL 40-60 63 Cholesterol/HDL Ratio 3.38 AVERAGE 1-4.97 Low Density Lipoprotein 98 mg/dL Less Than 100 64 Laboratory test 02/18/2012 [facility] TSH 0.05 MIU/ ML Low 0.34-5.60 finding [phone] Thyroxine Free 0.92 ng/dL 0.61-1.24 T3 Total 1.44 NG/ML 0.5-1.7 Hemoccult 02/12/2011 In House Lab Stool-Occult Blood #1 NEG Neg (607)- - Stool-Occult Blood #2 NEG Neg Stool-Occult Blood #3 NEG Neg Laboratory test 01/09/2011 [facility] PSA Screening 1.23 NG/ML 0-4 65 finding [phone] Lipid Profile 01/09/2011 [facility] Triglyceride 65 mg/dL 40-200 (Trig/Chol/HDL) [phone] Cholesterol 175 mg/dL Less Than 200 66 High Density Lipoprotein 51 mg/dL 40-60 67 Cholesterol/HDL Ratio 3.43 AVERAGE 1-4.97 Low Density Lipoprotein 111 mg/dL High Less Than 100 68 Laboratory test 01/09/2011 [facility] TSH 0.08 MIU/ ML Low 0.34-5.60 finding [phone] Comp Metabolic 01/09/2011 [facility] Sodium 138 mmol/ L 135-145 Panel [phone] Potassium 3.8 mmol/L 3.5-5.0 Chloride 103 mmol/L 101-111 Co2 (Carbon Dioxide) 29.0 mmol/L 22-32 Anion Gap 6.0 mmol/L 2-11 69 Glucose 107 mg/dL High 70-100 BUN 18 mg/dL 6-24 Creatinine 0.70 mg/dL 0.50-1.40 One Over Creatinine 1.40 BUN/Creatinine Ratio 25.7 High 8-20 Calcium 9.6 mg/dL 8.1-9.9 Total Protein 7.9 GM/DL 6.2-8.1 Albumin 4.6 GM/DL 3.2-5.2 Globulin 3.3 GM/DL 2-4 Albumin/Globulin Ratio 1.4 1-3 Bilirubin Total 0.5 mg/dL 0.4-1.5 70 Alkaline Phosphatase 79 U/L 39-117 Alt (SGPT) 27 U/L 17-63 Ast (Sgot) 23 U/L 12-42 eGFR Non- 113.9 > 60 eGFR 146.5 > 60 71 CBC With 01/09/2011 [facility] White Blood 7.6 CUMM 4.8-10.8 Electronic Diff [phone] Count Red Cell Count 4.70 CUMM 4.6-6.2 Hemoglobin 14.0 g/dL 14.0-18.0 Hematocrit 41 % Low 42-52 Mean Corpuscular Volume 87 um3 80-94 Mean Corpuscular Hemoglob 30 pg 27-31 Mean Corpuscular HGB Cone 34 g/dL 32-36 Redcell Distribution WDTH 14 % 10.5-15 Platelet Count 279 CUMM 150-450 Mean Platelet Volume 7.8 um3 7.4-10.4 Gran % 61.1 % 38-83 Lymph % 30.0 % 25-47 Mononuclear % 6.8 % 1-9 Eosinophil % 1.7 % 0-6 Basophil % 0.4 % 0-2 Abs Lymphs 2.3 1.0-4.8 Abs Mononuclear 0.5 0-0.8 Absolute Neutrophil Count 4.6 1.5-7.7 Abs Eosinophils 0.1 0-0.6 Abs Basophils 0 0-0.2 Laboratory test 01/09/2011 [facility] Hemoglobin A1c 5.8 % Less Than 72 finding [phone] 6.0 Urine DIP 01/09/2011 In House Lab Leukocytes NEG Neg (607)- - Urine Nitrites NEG Neg Urine pH 6 5-6 Total Protein, Urine TRACE Neg Urine Glucose NORM Norm Urine Ketones NEG Neg Urobilinogen NORM Norm Urine Bilirubin NEG Neg Urine Blood NEG Neg Specific [place] NA Low 1.01-1.02 Laboratory test 01/02/2010 [facility] TSH 0.53 MIU/ ML 0.34-5.60 finding [phone] Comp Metabolic 01/02/2010 [facility] Sodium 139 mmol/ L 135-145 Panel [phone] Potassium 4.5 mmol/L 3.5-5.0 Chloride 106 mmol/L 101-111 Co2 (Carbon Dioxide) 29.0 mmol/L 22-32 Anion Gap 4.0 mmol/L 2-11 73 Glucose 98 mg/dL 70-100 74 BUN 21 mg/dL 6-24 Creatinine 1.00 mg/dL 0.50-1.40 One Over Creatinine 1.00 BUN/Creatinine Ratio 21.0 High 8-20 Calcium 9.7 mg/dL 8.1-9.9 75 Total Protein 6.9 GM/DL 6.2-8.1 Albumin 4.2 GM/DL 3.2-5.2 Globulin 2.7 GM/DL 2-4 Albumin/Globulin Ratio 1.6 1-3 Bilirubin Total 0.6 mg/dL 0.4-1.5 76 Alkaline Phosphatase 63 U/L 39-117 Alt (SGPT) 29 U/L 17-63 Ast (Sgot) 21 U/L 12-42 eGFR Non- 80.5 > 60 eGFR 97.4 > 60 77 Lipid Profile 01/02/2010 [facility] Triglyceride 84 mg/dL 40-200 (Trig/Chol/HDL) [phone] Cholesterol 146 mg/dL Less Than 200 78 High Density Lipoprotein 45 mg/dL 40-60 79 Cholesterol/HDL Ratio 3.24 AVERAGE 1-4.97 Low Density Lipoprotein 84 mg/dL Less Than 100 80 Laboratory test 01/02/2010 [facility] PSA Screening 0.65 NG/ML 0-4 finding [phone] Laboratory test 08/17/2009 [facility] Surgical ------ ----- 81 finding [phone] Pathology ----- <SEE NOTE> Hemoccult 02/16/2009 In House Lab Stool-Occult NEG Neg (607)- - Blood #1 Stool-Occult Blood #2 NEG Neg Stool-Occult Blood #3 NEG Neg Laboratory test 02/09/2009 [facility] PSA Screening 0.70 NG/ML 0-4 82 finding [phone] Thyroid Panel 02/09/2009 [facility] Free Thyroxine 0.87 NG/ML 0.61-1.2 83 [phone] Thyroxine 7.4 g/dL 5-12 TSH 2.08 MIU/ML 0.34-5.60 Urine DIP 01/05/2009 In House Lab Leukocytes neg Neg (607)- - Urine Nitrites neg Neg Urine pH 5 5-6 Total Protein, Urine neg Neg Urine Glucose norm Norm Urine Ketones neg Neg Urobilinogen norm Norm Urine Bilirubin neg Neg Urine Blood neg Neg Specific [place] n/a Low 1.01-1.02 Laboratory test 12/11/2008 [facility] Glucose 99 mg/dL 70-100 finding [phone] TSH (Thyrotropin) 7.560 uIU/ml High 0.350-5.500 T-4 Total 8.8 g/dL 4.5-10.9 Hepatic (Liver) 12/11/2008 [facility] Albumin 5.1 g/dL High 3.5-4.7 Panel [phone] Protein, Total 8.3 g/dL 6.4-8.3 Alkaline Phosphatase 64 U/L 10-118 Sgot (Ast) 25 U/L 3-40 SGPT (Alt) 30 U/L 7-50 Bilirubin, Total 0.40 mg/dL 0.30-1.20 Bilirubin, Direct 0.10 mg/dL 0.00-0.40 Bilirubin, Indirect 0.30 mg/dL 0.10-1.10 Lipid Profile 12/11/2008 [facility] Cholesterol, Total 186 mg/dL 120-200 84 [phone] HDL Cholesterol 52 mg/dL 40-60 LDL Cholesterol, Calc. 118 mg/dL AB 85 Triglycerides 78 mg/dL 86 LDL/HDL Cholesterol 2.3 87 Chol/HDL Cholesterol 3.6 88 1 SEE RESULT BELOW Name: MEMBERSAMMY DOB: [address]: Evie Watts MD Acct: [id number] Unit: [id number] AGE: 73 Location: [facility] Re01/12/19 SEX: M Status: REG REF SPEC: [id number] TAIWO: 01/12/19-[address]: Evie Watts MD REQ: [id number] RECD: 01/12/197817 STATUS: RES _ SOURCE: EYE SPDESC: ORDERED: Eye Cult/GS COMMENTS: [id number] Procedure Result Reported Site Eye Culture Preliminary 01/13/19- 1314 ML Organism 1 HAEMOPHILUS INFLUENZAE Quantity 2+ Beta Lactamase Positive Eye Gram Stain Final 01/12/19- 1910 ML No Neutrophils Observed No Organisms Seen * ML - Main Lab . END OF REPORT DEPARTMENT OF PATHOLOGY, [address] [place] [address] Rome Baltazar M.D. Director [facility] # [id number] 2 Because ethnic data is not always readily available, this report includes an eGFR for both -Americans and non- Americans. The National Kidney Disease Education Program (NKDEP) does not endorse the use of the MDRD equation for patients that are not between the ages of 18 and 70, are , have extremes of body size, muscle mass, or nutritional status, or are non- or non-. According to the National Kidney Foundation, irrespective of diagnosis, the stage of the disease is based on the level of kidney function: Stage Description GFR(mL/min/1.73 m(2)) 1 Kidney damage with normal or decreased GFR 90 2 Kidney damage with mild decrease in GFR 60-89 3 Moderate decrease in GFR 30-59 4 Severe decrease in GFR 15-29 5 Kidney failure <15 (or dialysis) 3 Therapeutic target for the treatment of diabetes mellitus patients is <7% HBA1C, and in selective patients <6.0%. Please refer to [place] [employer] Association diabetic care guidelines for further information. 4 Desirable: <150 Borderline High: 150-199 High: 200-499 Very High: >500 5 Desirable: <200 Borderline High: 200-239 High: >239 6 Low: <40 Desirable: 40-60 High: >60 7 Desirable: <100 Near Optimal: 100-129 Borderline High: 130-159 High: 160-189 Very High: >189 8 [id number] 9 Serum levels of PSA measured using the [employer] DXI Hybritech immunoassay should not be interpreted as absolute evidence of the presence or absence of disease. The PSA value should be used in conjunction with other pertinent clinical diagnostic procedures. The values obtained with different assay methods or kits cannot be used interchangeably. 10 SEE RESULT BELOW Name: SAMMY WOOD : [address]: Rob Velasquez MD Acct: [id number] Unit: [id number] AGE: 72 Location: ENDO Re05/21/18 SEX: M Status: DEP REF SPEC: [id number] TAIWO: 05/21/18-0956 [facility] DR: Rob Velasquez MD REQ: [id number] RECD: 05/21/182047 STATUS: CARMELITA ARRIAGA DR: Evie Watts MD _ ORDERED: LEVEL 4 FINAL DIAGNOSIS Colon, 35 cm, biopsy: -- Hyperplastic polyp. POST-OPERATIVE DIAGNOSIS Colonoscopy: to cecum, diverticula, polyp at 35 cm (2) GROSS DESCRIPTION The specimen is received in formalin labeled, Biopsy Colon Polyps at 35 cm, and consists of two das-pink irregular to polypoid soft tissue fragments measuring 0.3 x 0.2 x 0.2 cm and 0.4 x 0.2 x 0.1 cm which are submitted entirely in one cassette. Signed by and Reported on: Rome Baltazar MD 08/03 1253 END OF REPORT DEPARTMENT OF PATHOLOGY, [address] [place] [address] Rome Baltazar M.D. Director [facility] # [id number] 11 Because ethnic data is not always readily available, this report includes an eGFR for both -Americans and non- Americans. The National Kidney Disease Education Program (NKDEP) does not endorse the use of the MDRD equation for patients that are not between the ages of 18 and 70, are , have extremes of body size, muscle mass, or nutritional status, or are non- or non-. According to the National Kidney Foundation, irrespective of diagnosis, the stage of the disease is based on the level of kidney function: Stage Description GFR(mL/min/1.73 m(2)) 1 Kidney damage with normal or decreased GFR 90 2 Kidney damage with mild decrease in GFR 60-89 3 Moderate decrease in GFR 30-59 4 Severe decrease in GFR 15-29 5 Kidney failure <15 (or dialysis) 12 Therapeutic target for the treatment of diabetes mellitus patients is <7% HBA1C, and in selective patients <6.0%. Please refer to [place] [employer] diabetic care guidelines for further information. 13 SEE RESULT BELOW Name: SAMMY WOOD : [address]: Evie Watts MD Acct: [id number] Unit: [id number] AGE: 72 Location: [facility] Re04/02/18 SEX: M Status: REG REF SPEC: [id number] TAIWO: 04/02/18-1604 [facility] DR: Evie Watts MD REQ: [id number] RECD: 04/02/18 STATUS: COMP _ SOURCE: BACK SPDESC: ORDERED: Culture Stain COMMENTS: [id number] Specimen Description WOUND MIDDLE UPPER BACK Procedure Result Reported Site Wound/Misc Gram Stain Final 04/03/18- 0821 ML No Neutrophils Observed No Organisms Seen Wound/Misc Culture Final 04/05/18- 1014 ML Organism 1 STAPHYLOCOCCUS LUGDENENSIS Quantity 1+ Organism 2 NORMAL MYRA Quantity 1+ 1. STAPHYLOCOCCUS LUGDENENSIS M.I.C. RX --------- ------ Penicillin 0.06 S Clindamycin <=0.25 S Erythromycin <=0.25 S Gentamicin <=0.5 S Linezolid 1 S Oxacillin 1 S * Quinupristin/Dalfopristin <=0.25 S Rifampin <=0.5 S Tetracycline <=1 S Doxycycline - Deduced S * Minocycline - Deduced S Tigecycline <=0.12 S CONTINUED ON NEXT PAGE DEPARTMENT OF PATHOLOGY, [address] [place] [address] Rome Baltazar M.D. Director [facility] # [id number] Patient: SAMMY WOOD [id number] (Continued) Specimen: [id number] Collected: 04/02/18160 Received: 04/02/18 (Continued) Procedure Result Reported Site Wound/Misc Culture Final (continued) 04/05/18- 1014 1. STAPHYLOCOCCUS LUGDENENSIS (continued) M.I.C. RX --------- ------ Vancomycin <=0.5 S Imipenem-Deduced S * Ampicillin/Sulbactam-Deduced S Cefazolin-Deduced S * These antibiotics are not available in the [facility] Formulary Contact the Microbiology Department for any additional antibiotic reporting. * ML - Main Lab . END OF REPORT DEPARTMENT OF PATHOLOGY, [address] [place] [address] Rome Baltazar M.D. Director [facility] # [id number] 14 Desirable: <150 Borderline High: 150-199 High: 200-499 Very High: >500 15 Desirable: <200 Borderline High: 200-239 High: >239 16 Low: <40 Desirable: 40-60 High: >60 17 Desirable: <100 Near Optimal: 100-129 Borderline High: 130-159 High: 160-189 Very High: >189 18 [id number] 19 [id number] 20 [id number] 21 [id number] 22 Because ethnic data is not always readily available, this report includes an eGFR for both -Americans and non- Americans. The National Kidney Disease Education Program (NKDEP) does not endorse the use of the MDRD equation for patients that are not between the ages of 18 and 70, are , have extremes of body size, muscle mass, or nutritional status, or are non- or non-. According to the National Kidney Foundation, irrespective of diagnosis, the stage of the disease is based on the level of kidney function: Stage Description GFR(mL/min/1.73 m(2)) 1 Kidney damage with normal or decreased GFR 90 2 Kidney damage with mild decrease in GFR 60-89 3 Moderate decrease in GFR 30-59 4 Severe decrease in GFR 15-29 5 Kidney failure <15 (or dialysis) 23 Normal Range 180 to 914 Indeterminate Range 145 to 180 Deficient Range <145 24 [id number] 25 [id number] 26 [id number] 28 [id number] Normal Range 180 to 914 Indeterminate Range 145 to 180 Deficient Range <145 30 Because ethnic data is not always readily available, this report includes an eGFR for both -Americans and non- Americans. The National Kidney Disease Education Program (NKDEP) does not endorse the use of the MDRD equation for patients that are not between the ages of 18 and 70, are , have extremes of body size, muscle mass, or nutritional status, or are non- or non-. According to the National Kidney Foundation, irrespective of diagnosis, the stage of the disease is based on the level of kidney function: Stage Description GFR(mL/min/1.73 m(2)) 1 Kidney damage with normal or decreased GFR 90 2 Kidney damage with mild decrease in GFR 60-89 3 Moderate decrease in GFR 30-59 4 Severe decrease in GFR 15-29 5 Kidney failure <15 (or dialysis) 31 Corrected result! Wrong result was 7.7. --- 11/24/169 --- Hemoglobin A1c previously reported as: 7.7 H % Therapeutic target for the treatment of diabetes Mellitus patients is <7% HBA1C, and in selective patients <6.0%.Please refer to [place] [employer] Diabetic care guidelines for further information. 32 [id number] Normal Range 180 to 914 Indeterminate Range 145 to 180 Deficient Range <145 35 [id number] Serum levels of PSA measured using the [employer] DXI Hybritech immunoassay should not be interpreted as absolute evidence of the presence or absence of disease. The PSA value should be used in conjunction with other pertinent clinical diagnostic procedures. A PSA value in the range of 0.1 to 0.6 ng/ml is indeterminate if being used as an indicator of recurrent or residual disease. The values obtained with different assay methods or kits cannot be used interchangeably. 37 Serum levels of PSA measured using the [employer] D[employer] Hybritech immunoassay should not be interpreted as absolute evidence of the presence or absence of disease. The PSA value should be used in conjunction with other pertinent clinical diagnostic procedures. A PSA value in the range of 0.1 to 0.6 ng/ml is indeterminate if being used as an indicator of recurrent or residual disease. The values obtained with different assay methods or kits cannot be used interchangeably. 38 Therapeutic target for the treatment of diabetes Mellitus patients is <7% HBA1C, and in selective patients <6.0%.Please refer to [place] [employer] Diabetic care guidelines for further information. 39 Because ethnic data is not always readily available, this report includes an eGFR for both -Americans and non- Americans. The National Kidney Disease Education Program (NKDEP) does not endorse the use of the MDRD equation for patients that are not between the ages of 18 and 70, are , have extremes of body size, muscle mass, or nutritional status, or are non- or non-. According to the National Kidney Foundation, irrespective of diagnosis, the stage of the disease is based on the level of kidney function: Stage Description GFR(mL/min/1.73 m(2)) 1 Kidney damage with normal or decreased GFR 90 2 Kidney damage with mild decrease in GFR 60-89 3 Moderate decrease in GFR 30-59 4 Severe decrease in GFR 15-29 5 Kidney failure <15 (or dialysis) 40 Desirable <150 Borderline high 150-199 High 200-499 Very High >500 41 Desirable <200 Borderline high 200-239 High >239 42 Low <40 Desirable: 40-60 High: >60 43 Desirable: <100 mg/dL Near Optimal: 100-129 mg/dL Borderline High: 130-159 mg/dL High: 160-189 mg/dL Very High: >189 mg/dL 44 Because ethnic data is not always readily available, this report includes an eGFR for both -Americans and non- Americans. The National Kidney Disease Education Program (NKDEP) does not endorse the use of the MDRD equation for patients that are not between the ages of 18 and 70, are , have extremes of body size, muscle mass, or nutritional status, or are non- or non-. According to the National Kidney Foundation, irrespective of diagnosis, the stage of the disease is based on the level of kidney function: Stage Description GFR(mL/min/1.73 m(2)) 1 Kidney damage with normal or decreased GFR 90 2 Kidney damage with mild decrease in GFR 60-89 3 Moderate decrease in GFR 30-59 4 Severe decrease in GFR 15-29 5 Kidney failure <15 (or dialysis) 45 Therapeutic target for the treatment of diabetes Mellitus patients is <7% HBA1C, and in selective patients <6.0%.Please refer to [place] [employer] Diabetic care guidelines for further information. 46 Normal Range 180 to 914 Indeterminate Range 145 to 180 Deficient Range <145 47 Because ethnic data is not always readily available, this report includes an eGFR for both -Americans and non- Americans. The National Kidney Disease Education Program (NKDEP) does not endorse the use of the MDRD equation for patients that are not between the ages of 18 and 70, are , have extremes of body size, muscle mass, or nutritional status, or are non- or non-. According to the National Kidney Foundation, irrespective of diagnosis, the stage of the disease is based on the level of kidney function: Stage Description GFR(mL/min/1.73 m(2)) 1 Kidney damage with normal or decreased GFR 90 2 Kidney damage with mild decrease in GFR 60-89 3 Moderate decrease in GFR 30-59 4 Severe decrease in GFR 15-29 5 Kidney failure <15 (or dialysis) 48 Because ethnic data is not always readily available, this report includes an eGFR for both -Americans and non- Americans. The National Kidney Disease Education Program (NKDEP) does not endorse the use of the MDRD equation for patients that are not between the ages of 18 and 70, are , have extremes of body size, muscle mass, or nutritional status, or are non- or non-. According to the National Kidney Foundation, irrespective of diagnosis, the stage of the disease is based on the level of kidney function: Stage Description GFR(mL/min/1.73 m(2)) 1 Kidney damage with normal or decreased GFR 90 2 Kidney damage with mild decrease in GFR 60-89 3 Moderate decrease in GFR 30-59 4 Severe decrease in GFR 15-29 5 Kidney failure <15 (or dialysis) 49 HDL Interpretation: Undesirable: High Risk: Less than 40 MG/DL Desirable: Low Risk: Greater than 60 MG/DL 50 LDL Interpretation: Low Risk Optimal Level: LDL Less than 100 MG/DL Near or Above Optimal: LDL 100-129 MG/DL Borderline High Risk: LDL 130-159 MG/DL High Risk: LDL 160-189 MG/DL Very High Risk: LDL Greater than 189 MG/DL 51 FASTING 52 Therapeutic target for the treatment of diabetes Mellitus patients is <7% HBA1C, and in selective patients <6.0%.Please refer to [place] [employer] Diabetic care guidelines for further information. 53 Serum levels of PSA measured using the [employer] DXI Hybritech immunoassay should not be interpreted as absolute evidence of the presence or absence of disease. The PSA value should be used in conjunction with other pertinent clinical diagnostic procedures. A PSA value in the range of 0.1 to 0.6 ng/ml is indeterminate if being used as an indicator of recurrent or residual disease. The values obtained with different assay methods or kits cannot be used interchangeably. 54 ---- RUN DATE: 04/13/12 [facility] NMI LIVE PAGE 1 RUN TIME: 1424 Specimen Inquiry RUN USER: INTERFACE -- Name: SAMMY WOOD Status: REG REF Re04/09/12 Age/Sex: 66/M Unit#: [id number] Location: [facility] : 47 -- Specimen: [id number] SOUT Spec Date:04/09/12- [facility] Dr: Rob stein MD Spec Type: SURGICAL P Received:04/09/12-1516 Copies to: Evie voss MD SPECIMEN 1) PROXIMAL TRANSVERSE POLYP 2) BIOPSY COLON POLYP AT 30 CM. HISTORY POST-OP DIAGNOSIS: To terminal ileum, 3 polyps CLINICAL INFORMATION: Screening GROSS DESCRIPTION 1) The specimen is received in formalin labelled Sammy Member, Proximal Transverse Polyp, and consists of two das, soft tissue fragments measuring 0.5 x 0.3 x 0.2 cm. Submitted entirely, one cassette. 2) The specimen is received in formalin labelled Sammy Member, Biopsy Colon Polyp at 30 cm., and consists of a dsa, soft tissue fragment measuring 0.3 x 0.2 x 0.1 cm. Submitted entirely, one cassette. DIAGNOSIS 1) Colon, transverse, biopsy: A. Tubular adenoma. B. No high grade dysplasia or malignancy. 2) Colon, 30 cm., biopsy: Hyperplastic polyp. Signed Electronically by: ROME BALTAZAR MD 04/13/12 1420 -- -- DEPARTMENT OF PATHOLOGY, [address] [place] [address] [facility] Permit #[id number] Rome Baltazar M.D. Director Pola Severino M.D. Director Of [facility] román -- 55 COLLECTED FROM 03/31/12 0900 THROUGH 04/01/12 0900. 56 UREINE PROTEIN BELOW DETECTABLE LIMITS 57 THERAPEUTIC TARGET FOR THE TREATMENT OF DIABETES MELLITUS PATIENTS IS <7% HBA1C, AND IN SELECTIVE PATIENTS <6.0%. PLEASE REFER TO [place] [employer] DIABETIC CARE GUIDELINES FOR FURTHER INFORMATION. 58 * SERUM LEVELS OF PSA MEASURED USING THE [employer] ACCESS HYBRITECH IMMUNOASSAY SHOULD NOT BE INTERPRETED ABSOLUTE EVIDENCE OF THE PRESENCE OR ABSENCE OF DISEASE. THE PSA VALUE SHOULD BE USED IN CONJUNCTION WITH OTHER PERTINENT CLINICAL DIAGNOSTIC PROCEDURES. A PSA value in the range of 0.1 to 0.6 ng/ml is indeterminate if being used as an indicator of recurrent or residual disease. . The values obtained with different assay methods of kits cannot be used interchangeably. 59 Anion gap measurement may be of limited value in the presence of any alkalosis, especially in a combined acid base disorder. . 60 A metabolite of Naproxen, O-desmethylnaproxen, has been shown to interfere with the [place]rass[place] method for measuring total bilirubin. Samples from patients who have taken Naproxen have shown spurious elevation in total bilirubin levels. 61 Because ethnic data is not always readily available, this report includes an eGFR for both -Americans and non- Americans. The National Kidney Disease Education Program (NKDEP) does not endorse the use of the MDRD equation for patients that are not between the ages of 18 and 70, are , have extremes of body size, muscle mass, or nutritional status, or are non- or non-. According to the National Kidney Foundation, irrespective of diagnosis, the stage of the disease is based on the level of kidney function: Stage Description GFR(mL/min/1.73 m(2)) 1 Kidney damage with normal or decreased GFR 90 2 Kidney damage with mild decrease in GFR 60-89 3 Moderate decrease in GFR 30-59 4 Severe decrease in GFR 15-29 5 Kidney failure <15 (or dialysis) 62 CHOLESTEROL INTERPRETATION: Desirable: Less than 200 MG/DL Borderline-High Risk: 200-239 MG/DL High-Risk: 240 MG/DL and over 63 HDL INTERPRETATION: Undesirable: High Risk: Less than 40 MG/DL Desirable: Low Risk: Greater than 60 MG/DL 64 LDL INTERPRETATION: Low Risk Optimal Level: LDL Less than 100 MG/DL Near or Above Optimal: LDL 100-129 MG/DL Borderline High Risk: LDL 130-159 MG/DL High Risk: LDL 160-189 MG/DL Very High Risk: LDL Greater than 189 MG/DL 65 * SERUM LEVELS OF PSA MEASURED USING THE [employer] ACCESS HYBRITECH IMMUNOASSAY SHOULD NOT BE INTERPRETED ABSOLUTE EVIDENCE OF THE PRESENCE OR ABSENCE OF DISEASE. THE PSA VALUE SHOULD BE USED IN CONJUNCTION WITH OTHER PERTINENT CLINICAL DIAGNOSTIC PROCEDURES. 66 CHOLESTEROL INTERPRETATION: Desirable: Less than 200 MG/DL Borderline-High Risk: 200-239 MG/DL High-Risk: 240 MG/DL and over 67 HDL INTERPRETATION: Undesirable: High Risk: Less than 40 MG/DL Desirable: Low Risk: Greater than 60 MG/DL 68 LDL INTERPRETATION: Low Risk Optimal Level: LDL Less than 100 MG/DL Near or Above Optimal: LDL 100-129 MG/DL Borderline High Risk: LDL 130-159 MG/DL High Risk: LDL 160-189 MG/DL Very High Risk: LDL Greater than 189 MG/DL 69 Anion gap measurement may be of limited value in the presence of any alkalosis, especially in a combined acid base disorder. . 70 A metabolite of Naproxen, O-desmethylnaproxen, has been shown to interfere with the J[place]rass[place] method for measuring total bilirubin. Samples from patients who have taken Naproxen have shown spurious elevation in total bilirubin levels. 71 Because ethnic data is not always readily available, this report includes an eGFR for both -Americans and non- Americans. The National Kidney Disease Education Program (NKDEP) does not endorse the use of the MDRD equation for patients that are not between the ages of 18 and 70, are , have extremes of body size, muscle mass, or nutritional status, or are non- or non-. According to the National Kidney Foundation, irrespective of diagnosis, the stage of the disease is based on the level of kidney function: Stage Description GFR(mL/min/1.73 m(2)) 1 Kidney damage with normal or decreased GFR 90 2 Kidney damage with mild decrease in GFR 60-89 3 Moderate decrease in GFR 30-59 4 Severe decrease in GFR 15-29 5 Kidney failure <15 (or dialysis) 72 THERAPEUTIC TARGET FOR THE TREATMENT OF DIABETES MELLITUS PATIENTS IS <7% HBA1C, AND IN SELECTIVE PATIENTS <6.0%. PLEASE REFER TO [place] [employer] DIABETIC CARE GUIDELINES FOR FURTHER INFORMATION. 73 Anion gap measurement may be of limited value in the presence of any alkalosis, especially in a combined acid base disorder. . 74 Note change in reference range as of 07/06/08. The change was based on recommendations from the [place] [employer]. 75 Please note change in reference range effective 08 . 76 A metabolite of Naproxen, O-desmethylnaproxen, has been shown to interfere with the Jendrassik-[place] method for measuring total bilirubin. Samples from patients who have taken Naproxen have shown spurious elevation in total bilirubin levels. 77 Because ethnic data is not always readily available, this report includes an eGFR for both -Americans and non- Americans. The National Kidney Disease Education Program (NKDEP) does not endorse the use of the MDRD equation for patients that are not between the ages of 18 and 70, are , have extremes of body size, muscle mass, or nutritional status, or are non- or non-. According to the National Kidney Foundation, irrespective of diagnosis, the stage of the disease is based on the level of kidney function: Stage Description GFR(mL/min/1.73 m(2)) 1 Kidney damage with normal or decreased GFR 90 2 Kidney damage with mild decrease in GFR 60-89 3 Moderate decrease in GFR 30-59 4 Severe decrease in GFR 15-29 5 Kidney failure <15 (or dialysis) 78 CHOLESTEROL INTERPRETATION: Desirable: Less than 200 MG/DL Borderline-High Risk: 200-239 MG/DL High-Risk: 240 MG/DL and over 79 HDL INTERPRETATION: Undesirable: High Risk: Less than 40 MG/DL Desirable: Low Risk: Greater than 60 MG/DL 80 LDL INTERPRETATION: Low Risk Optimal Level: LDL Less than 100 MG/DL Near or Above Optimal: LDL 100-129 MG/DL Borderline High Risk: LDL 130-159 MG/DL High Risk: LDL 160-189 MG/DL Very High Risk: LDL Greater than 189 MG/DL 81 ---- RUN DATE: 08/21/09 [facility] NMI LIVE PAGE 1 RUN TIME: 1307 Specimen Inquiry RUN USER: INTERFACE -- Name: SAMMY WOOD Accblaire#: [id number] Status: REG REF Re08/17/09 Age/Sex: 63/M Unit#: [id number] Location: [facility] : 49 -- Specimen: [id number] [facility] Spec Date: 08/17/[address]: Evie jean-baptiste MD Spec Type: SURGICAL P Received: 08/20/09-1252 Copies to: SPECIMEN MOLE REMOVAL FROM CHEST HISTORY PRE-OP DIAGNOSIS: Mole removal from chest. GROSS DESCRIPTION Specimen received in formalin labelled Jasmeet Aguirre from Chest and consists of an unoriented, hair bearing skin ellipse measuring 0.7 x 0.5 x 0.3 cm. Specimen is inked, sectioned along its short axis and submitted entirely in one cassette. DIAGNOSIS Skin, chest, excision: Benign, predominantly intradermal melanocytic nevus, neurotized. Signed Electronically by: ROME BALTAZAR MD 08/21/09 1305 -- -- DEPARTMENT OF PATHOLOGY, [address] [place] [address] [facility] Permit #[id number] Rome Baltazar M.D. Director Pola Severino M.D. Director Of [facility] Dir román -- 82 * SERUM LEVELS OF PSA MEASURED USING THE [employer] ACCESS HYBRITECH IMMUNOASSAY SHOULD NOT BE INTERPRETED ABSOLUTE EVIDENCE OF THE PRESENCE OR ABSENCE OF DISEASE. THE PSA VALUE SHOULD BE USED IN CONJUNCTION WITH OTHER PERTINENT CLINICAL DIAGNOSTIC PROCEDURES. 83 PLEASE NOTE NEW REFERENCE RANGES. 84 Cholesterol Risk Levels (NIH) Recommended: under 200 mg/dl Borderline : 200-239 mg/dl High Risk : Above 240 mg/dl 85 The National Cholesterol Education Program recommends the following ranges for LDL Cholesterol: Optimal under 100 mg/dl Near or above Optimal 100 - 129 mg/dl Borderline High 130 - 159 mg/dl High 160 - 189 mg/dl Very High above 190 mg/dl 86 Triglyceride Risk Levels: Normal : <150 mg/dl Borderline : 150-199 mg/dl High : 200-499 mg/dl Very High : >500 mg/dl 87 LDL/HDL Risk Ratio Levels MALE FEMALE 1/2 X Average 1.00 1.47 Average 3.55 3.22 2 X Average 6.25 5.03 3 X Average 7.99 6.14 88 CHOL/HDL Risk Ratio Levels MALE FEMALE 1/2 X Average 3.4 3.3 Average 5.0 4.4 2 X Average 9.5 7.0 3 X Average 24.0 11.0 Procedures Date Code Description Status 04/02/2018 55673 I&D Of Abscess Completed 05/22/2017 63380 Spirometry Completed 05/22/2017 47157 EKG, at Least 12 Leads w/Interpretation and Report Completed 02/18/2012 23574 EKG, at Least 12 Leads w/Interpretation and Report Completed 08/17/2009 19309 Shaving Epidermal Lesions-<.5 CM Completed 01/05/2009 61666 EKG, at Least 12 Leads w/Interpretation and Report Completed Encounters Type Date Location Provider Dx Diagnosis Office Visit 12/10/2018 [facility] Evie Watts, Z00.00 Encntr for general 2:00p M.D., R.D. adult medical exam w/o abnormal findings J44.9 Chronic obstructive pulmonary disease, unspecified F41.9 Anxiety disorder, unspecified F33.8 Other recurrent depressive disorders I10 Essential (primary) hypertension R73.01 Impaired fasting glucose E05.00 Thyrotoxicosis w diffuse goiter w/o thyrotoxic crisis Office Visit 07/30/2018 10:45a [facility] Evie Watts J44.9 Chronic M.D., R.D. obstructive pulmonary disease, unspecified F41.9 Anxiety disorder, unspecified F33.8 Other recurrent depressive disorders Z23 Encounter for immunization Office Visit 12/04/2017 12:00p Main Office Evie Watts, Z00.00 Encntr for Rodney, R.D. general adult medical exam w/o abnormal findings I10 Essential (primary) hypertension E05.00 Thyrotoxicosis w diffuse goiter w/o thyrotoxic crisis F41.1 Generalized anxiety disorder F32.9 Major depressive disorder, single episode, unspecified D64.9 Anemia, unspecified E55.9 Vitamin D deficiency, unspecified N40.0 Benign prostatic hyperplasia without lower urinry tract symp Office Visit 08/28/2017 11:15a Main Office Evie Watts, L03.039 Cellulitis of M.D., R.D. unspecified toe K62.89 Other specified diseases of anus and rectum J44.9 Chronic obstructive pulmonary disease, unspecified Z23 Encounter for immunization Office Visit 05/22/2017 11:00a Main Office Evie Watts, R06.00 Dyspnea, M.D., R.D. unspecified M54.2 Cervicalgia E05.00 Thyrotoxicosis w diffuse goiter w/o thyrotoxic crisis E55.9 Vitamin D deficiency, unspecified D64.9 Anemia, unspecified Office Visit 11/21/2016 9:30a Main Office Evie Watts, I10 Essential ( primary) M.Kelsi., R.D. hypertension Z00.00 Encntr for general adult medical exam w/o abnormal findings R73.01 Impaired fasting glucose Z20.89 Contact w and exposure to oth communicable diseases E05.00 Thyrotoxicosis w diffuse goiter w/o thyrotoxic crisis E55.9 Vitamin D deficiency, unspecified F41.1 Generalized anxiety disorder I10 Essential (primary) hypertension Z23 Encounter for immunization F32.9 Major depressive disorder, single episode, unspecified R73.01 Impaired fasting glucose E05.00 Thyrotoxicosis w diffuse goiter w/o thyrotoxic crisis Z20.89 Contact w and exposure to oth communicable diseases Office Visit 09/26/2015 9:30a Main Office Evie Watts, Z00.00 Encntr for M.Kelsi., R.D. general adult medical exam w/o abnormal findings I10 Essential (primary) hypertension R73.01 Impaired fasting glucose E05.00 Thyrotoxicosis w diffuse goiter w/o thyrotoxic crisis F41.1 Generalized anxiety disorder F32.9 Major depressive disorder, single episode, unspecified M54.5 Low back pain Z23 Encounter for immunization Office Visit 05/21/2015 2:45p Main Office Evie Watts, 719.45 Pain Joint Pelvic M.Kelsi., R.D. Region & Thigh Office Visit 09/06/2014 2:15p Main Office Evie Watts, V70.0 Examination M.D., R.D. 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 300.02 Anxiety Disorder Generalized 311 Depressive Disorder Not Elsewhere Spec 790.21 Impaired Fasting Glucose 783.21 Loss Of Weight Office Visit 04/29/2013 11:30a Main Office Lab and Office 401.1 Hypertension Benign Services Office Visit 02/18/2012 10:45a Main Office Evie Watts, V70.0 Examination General M.D., R.D. 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 Diffuse W/O Thyrotoxic Crisis Or Storm 272.2 Hyperlipidemia Mixed 311 Depressive Disorder Not Elsewhere Spec 300.02 Anxiety Disorder Generalized 401.1 Hypertension Benign 600.20 Benign Localized Hyperplasia Prostate W/O Urinary Obstruct Plan of Treatment No Information Available
[2019-01-26 18:39] VITALS: BP 134/90
--- NOTE | 2019-01-26 19:50 | UC ---
FLU HPI - HPI Summary HPI Summary: Patient reports multiple members in his household positive for the flu. Yesterday developed cough, nasal congestion, watery eyes, chills and body aches. Up-to-date flu shot. - History of Current Complaint Chief Complaint: UCRespiratory Stated Complaint: COUGH Time Seen by Provider: 01/26/19 19:32 Hx Obtained From: Patient Onset/Duration: Gradual Onset, Lasting Days - 1 DAY, Still Present Severity Currently: Moderate Severity Initially: Moderate Pain Intensity: 0 Pain Scale Used: 0-10 Numeric Associated Signs & Symptoms: Positive: Myalgia, Cough, Nasal Congestion. Negative: Fever, Headache - Allergy/Home Medications Allergies/Adverse Reactions: Allergies Allergy/AdvReac Type Severity Reaction Status Date / Time No Known Allergies Allergy Verified 01/26/19 18:39 Home Medications: Home Medications DULoxetine DR CAP* [Cymbalta CAP*] 60 mg PO DAILY 01/26/19 [History Confirmed ] PMH/Surg Hx/FS Hx/Imm Hx Endocrine History: Hypothyroidism, Dyslipidemia Respiratory History: COPD - Surgical History Surgical History: Yes Surgery Procedure, Year, and Place: duodenal malformation surgery. cataracts - Family History Known Family History: Positive: Non-Contributory - Social History Alcohol Use: None Substance Use Type: None Smoking Status (MU): Smoker, Current Status Unknown Type: Cigarettes Amount Used/How Often: 3-4 / day Have You Smoked in the Last Year: Yes Review of Systems All Other Systems Reviewed And Are Negative: Yes Constitutional: Positive: Chills, Fatigue ENT: Positive: Nasal Discharge Respiratory: Positive: Cough Cardiovascular: Positive: Negative Gastrointestinal: Positive: Negative Musculoskeletal: Positive: Myalgia Physical Exam Triage Information Reviewed: Yes Appearance: Well-Appearing, No Pain Distress, Well-Nourished Vital Signs: Initial Vital Signs Temp 99.1 F 01/26/19 18:33 Pulse 88 01/26/19 18:33 Resp 20 01/26/19 18:33 BP 134/90 01/26/19 18:33 Pulse Ox 97 01/26/19 18:33 Vital Signs Reviewed: Yes Eyes: Positive: Conjunctiva Clear ENT: Positive: Hearing grossly normal, Pharynx normal, TMs normal Neck: Positive: Supple, Nontender, No Lymphadenopathy Respiratory Exam: Normal Cardiovascular Exam: Normal Abdomen Description: Positive: Soft Musculoskeletal: Positive: No Edema Neurological: Positive: Alert Psychological: Positive: Age Appropriate Behavior Skin: Negative: Rashes Flu Course/Dx - Differential Dx/Diagnosis Provider Diagnosis: Acute viral syndrome Discharge - Sign-Out/Discharge Documenting (check all that apply): Patient Departure All imaging exams completed and their final reports reviewed: No Studies - Discharge Plan Condition: Stable Disposition: HOME Prescriptions: Oseltamivir CAP* [Tamiflu CAP*] 75 mg PO BID #10 cap Patient Education Materials: Viral Syndrome (ED) Referrals: Evie Estrada MD [Primary Care Provider] - If Needed Additional Instructions: GIVEN YOUR CLOSE HOUSEHOLD CONTACT WITH [facility] WILL GO AHEAD AND TREAT EMPIRICALLY WITH TAMIFLU TWICE DAILY FOR 5 DAYS. REST, HYDRATE, NSAIDS NEEDED. SEEK FOLLOW-UP IF YOU ARE NOT IMPROVING OVER THE NEXT 1-2 WEEKS. - Billing Disposition and Condition Condition: STABLE Disposition: Home
== END 2019-01-26 19:54 | disposition home or self-care (01) ==
LOC: UCEAST 18:26
DX: B34.9 Viral infection, unspecified (principal); R05 Cough; M79.10 Myalgia, unspecified site; R09.81 Nasal congestion; H57.89 Other specified disorders of eye and adnexa; J44.9 Chronic obstructive pulmonary disease, unspecified
CPT/HCPCS: 99212; G0463

== ENCOUNTER 2022-08-25 07:48 | Observation (INO) ==
[~2022-08-25 07:48] MED LIST: Acetaminophen IV 1 GM/100ML 1,000 MG/100 ML BAG IV ONE; Buffered Lidocaine 1% SYRIN 1 ml INTRADERM ONE; Lactated Ringers 1000 ml BAG 1,000 ML IV SCH; Naloxone 0.4 mg VIAL 0.4 mg/ml 1 ml VIAL IV PRN; Ondansetron 4 mg VIAL 2 MG/ML 2 ml VIAL IV PRN; Rocuronium 50 mg VIAL 10 mg/ml 5 ml VIAL (50 mg) ONE; fentaNYL 100 mcg/2 ml 50 MCG/ML VIAL IV PRN; oxyCODONE/Acetamin 5/325 mg TAB PO PRN
[2022-08-25] MEDS ORDERED: ceFAZolin 2 GM in NS PREMIX 2 GM/100 ML BAG IVPB ONE (08:01)
[2022-08-25] MEDS ORDERED: Gelfoam 12-7 ADSORBABL SPONGE ONE (08:21)
[2022-08-25] MEDS ORDERED: Lidocaine 1.5% EPI 1:200,000 30 ML SDV ONE (08:21)
[2022-08-25] MEDS ORDERED: Thrombin 5,000 UNITS 1 APPLIC KIT - topical use - TOPICAL ONE (08:21)
[2022-08-25] MEDS ORDERED: ceFAZolin VIAL VIAL ONE (08:23)
[2022-08-25] MEDS ORDERED: Gelfoam Sponge SIZE 100 SPONGE ONE (08:23)
[2022-08-25] MEDS ORDERED: fentaNYL 250 mcg/5 ml 50 MCG/ML 5 ml VIAL (250 MCG) ONE (08:26)
[2022-08-25] MEDS ORDERED: Midazolam 2 mg/2 ml VIAL 1 mg/ml 2 ml VIAL (2 mg) ONE (08:26)
[2022-08-25] MEDS ORDERED: Sterile Water for Inj 10 ML ONE (08:27)
[2022-08-25] MEDS ORDERED: Sevoflurane BOTTLE ONE (08:28)
[2022-08-25] MEDS ORDERED: Lidocaine 2% PF 5 ML VIAL ONE (08:28)
[2022-08-25] MEDS ORDERED: Dexamethasone IV 4 MG/ML VIAL 1 ml VIAL ONE (08:28)
[2022-08-25] MEDS ORDERED: Ondansetron 4 mg VIAL 2 MG/ML 2 ml VIAL ONE (08:28)
[2022-08-25] MEDS ORDERED: Phenylephrine IV 10 MG/ML 1 ml VIAL ONE (10:48)
[2022-08-25] MEDS ORDERED: Phenylephrine 40 mcg/mL 10mL (400mcg) SYRINGE ONE (10:48)
[2022-08-25] MEDS ORDERED: Bacitracin OINTMENT TUBE ONE (12:58)
[2022-08-25] MEDS ORDERED: Ondansetron 4 mg VIAL 2 MG/ML 2 ml VIAL IV PRN (13:06)
[2022-08-25] MEDS ORDERED: Albuterol HFA INHALER 8 gm MDI INH PRN (13:12)
[2022-08-25] MEDS ORDERED: Morphine 2 MG/ML SYRINGE IV PRN (13:12)
[2022-08-25] MEDS ORDERED: Lactated Ringers 1000 ml BAG 1,000 ML IV SCH (14:00)
[2022-08-25] MEDS ORDERED: oxyCODONE/Acetamin 5/325 mg TAB ONE (14:36)
[2022-08-26 07:46] VITALS: BP 121/62
[2022-08-26] MEDS ORDERED: Cholecalciferol (VIT D3) 1,000 unit TAB PO SCH (09:00)
[2022-08-26] MEDS ORDERED: DULoxetine DR 30 mg CAP PO SCH (09:00)
[2022-08-26] MEDS ORDERED: Tiotropium Brom/Olodaterol MDI INH SCH (09:00)
== END 2022-08-26 11:25 | disposition home or self-care (01) ==
LOC: OR 07:48 → SSU 07:48
PROVIDERS: ADMIT Neurological Surgery; ATTEND Neurological Surgery

== ENCOUNTER 2023-03-31 08:45 | Inpatient (IN) ==
[~2023-03-31 08:45] MED LIST changes: -Acetaminophen IV 1 GM/100ML 1,000 MG/100 ML BAG IV ONE; -Rocuronium 50 mg VIAL 10 mg/ml 5 ml VIAL (50 mg) ONE
[2023-04-14] MEDS ORDERED: Tranexamic Acid 1,000 MG/10 ML 1,000 MG in NS 0.9% 50 ML 50 ML IV SCH
[2023-04-14] MEDS ORDERED: Famotidine IV 10 MG/ML 2 ml VIAL (20 mg) IV ONE (06:00)
[2023-04-14] MEDS ORDERED: Dexamethasone IV 4 MG/ML VIAL 1 ml VIAL IV SLOW PU ONE (06:00)
[2023-04-14] MEDS ORDERED: Buffered Lidocaine 1% SYRIN 1 ml INTRADERM ONE (06:00)
[2023-04-14] MEDS ORDERED: Lactated Ringers 1000 ml BAG 1,000 ML IV SCH ×2 (06:00→14:00)
[2023-04-14] MEDS ORDERED: Acetaminophen IV 1 GM/100ML 1,000 MG/100 ML BAG IV ONE (08:00)
[2023-04-14] MEDS ORDERED: ceFAZolin 2 GM in NS PREMIX 2 GM/100 ML BAG IVPB ONE (08:50)
[2023-04-14] MEDS ORDERED: Dexamethasone IV 4 MG/ML VIAL 1 ml VIAL ONE (08:50)
[2023-04-14] MEDS ORDERED: Famotidine IV 10 MG/ML 2 ml VIAL (20 mg) ONE (08:50)
[2023-04-14 09:09] LABS: Rapid COVID-19 Molecular Undetected (Undetected)
[2023-04-14] MEDS ORDERED: Midazolam 2 mg/2 ml VIAL 1 mg/ml 2 ml VIAL (2 mg) ONE (10:20)
[2023-04-14] MEDS ORDERED: fentaNYL 100 mcg/2 ml 50 MCG/ML VIAL ONE (10:20)
[2023-04-14] MEDS ORDERED: Rocuronium 50 mg VIAL 10 mg/ml 5 ml VIAL (50 mg) ONE (11:42)
[2023-04-14] MEDS ORDERED: Lidocaine 2% PF 5 ML VIAL ONE (11:45)
[2023-04-14] MEDS ORDERED: fentaNYL 100 mcg/2 ml 50 MCG/ML VIAL IV PRN (12:03)
[2023-04-14] MEDS ORDERED: HYDROmorphone 1 MG/1 ML SYRINGE IV PRN (12:03)
[2023-04-14] MEDS ORDERED: Naloxone 0.4 mg VIAL 0.4 mg/ml 1 ml VIAL IV PRN (12:03)
[2023-04-14] MEDS ORDERED: Sodium Chloride 0.9% 10 ML ONE ×3 (12:14→12:36)
[2023-04-14] MEDS ORDERED: Ondansetron 4 mg VIAL 2 MG/ML 2 ml VIAL ONE (12:18)
[2023-04-14] MEDS ORDERED: Glycopyrrolate IV 0.2 MG/ML 1 ML VIAL ONE (12:25)
[2023-04-14] MEDS ORDERED: Ondansetron 4 mg VIAL 2 MG/ML 2 ml VIAL IV PRN (13:13)
[2023-04-14] MEDS ORDERED: Ondansetron ODT 4 mg TAB 4 MG TAB PO PRN (13:13)
[2023-04-14] MEDS ORDERED: Magnesium Hydroxide LIQ 30 ML UDC PO PRN (13:13)
[2023-04-14] MEDS ORDERED: Morphine 2 MG/ML SYRINGE IV PRN (13:13)
[2023-04-14] MEDS ORDERED: Lactulose 30 ml UDC PO PRN (13:13)
[2023-04-14] MEDS ORDERED: Propofol 10 MG/ML 20 ML BTL ONE (13:47)
[2023-04-14] MEDS ORDERED: Albuterol HFA INHALER 8 gm MDI INH PRN (18:58)
[2023-04-14] MEDS ORDERED: Nicotine GUM 2MG FRUIT FLAVOR PO PRN (19:03)
[2023-04-14] MEDS: ceFAZolin 1 GM ADVAN 1 GM in NS 0.9% 50 ML 50 ML IVPB SCH (19:30)
[2023-04-14] MEDS ORDERED: DULoxetine DR 60 mg CAP PO SCH (21:00)
[2023-04-14] MEDS ORDERED: Cholecalciferol (VIT D3) 1,000 unit TAB PO SCH (21:00)
[2023-04-14] MEDS: BRIMONIDINE P 0.15% BOTH EYES SCH (21:56)
[2023-04-14] MEDS: Magnesium Hydroxide LIQ 30 ML UDC PO SCH (21:57)
[2023-04-15] MEDS: ceFAZolin 1 GM ADVAN 1 GM in NS 0.9% 50 ML 50 ML IVPB SCH ×2 (03:43→11:40)
[2023-04-15 04:23] LABS: Urine Appearance Clear; Urine Bilirubin Negative (Negative); Urine Blood 2+ (Negative); Urine Color Yellow; Urine Glucose 2+(150 mg/dL) (Negative); Urine Ketones Negative (Negative); Urine Nitrite Negative (Negative); Urine Protein Negative (Negative); Urine Specific Gravity 1.012 (1.002-1.030); Urine Urobilinogen Negative (Negative)
[2023-04-15 04:26] LABS: Urine Bacteria Absent (Absent); Urine Red Blood Cell 3+(>10/hpf) (Absent); Urine White Blood Cell Trace(0-5/hpf) (Absent)
[2023-04-15 06:00] LABS: Hematocrit 30.6 % (38-53); Hemoglobin 10.8 g/dL (13.2-16.3); Mean Platelet Volume 7.1 fL (7.5-11.2); Platelet Count 206 10^3/uL (150-450)
[2023-04-15 06:17] LABS: Creatinine, Serum 0.9 mg/dL (0.67-1.17); Potassium 4.6 mmol/L (3.5-5.0); eGFR CKD-EPI 89.1 (>60)
[2023-04-15] MEDS: BRIMONIDINE P 0.15% BOTH EYES SCH (08:49)
[2023-04-15] MEDS ORDERED: Vitamin THERAPEUTIC TAB PO SCH (09:00)
[2023-04-15] MEDS ORDERED: Tiotropium Brom/Olodaterol MDI (ACUTE) INH SCH (09:00)
[2023-04-15] MEDS: Magnesium Hydroxide LIQ 30 ML UDC PO SCH ×2 (10:01→13:40)
[2023-04-15 10:36] VITALS: BP 116/73
[2023-04-15] MEDS ORDERED: Latanoprost 0.005% 2.5 ml BTL BOTH EYES SCH (21:00)
== END 2023-04-15 14:00 | disposition home or self-care (01) | DRG 470 ==
LOC: INTOOBSV 04-14 08:18 → AA 04-14 08:18 → SSU 04-14 15:57
PROVIDERS: ADMIT Orthopaedic Surgery Adult Reconstructive Orthopaedic Surgery; ATTEND Orthopaedic Surgery Adult Reconstructive Orthopaedic Surgery